=== PATIENT | female | born 1965 | race Caucasian/White ===

== ENCOUNTER 2017-05-15 13:08 | Emergency (ER) | payer SELFPAY ==
[2017-05-15] MEDS ORDERED: Iopamidol 370 76% 50 ML VIAL FS ONE (13:46)
[2017-05-15] MEDS ORDERED: ISOVUE-370 76%-LOCM 1 ML ONE (13:46)
[2017-05-15 14:04] LABS: #Basophils 0.1 thou/uL (0.0-0.2); #Eosinphils 0.1 thou/uL (0.0-0.7); #Lymphocytes 3.7 thou/uL (1.20-3.40); #Monocytes 0.6 thou/uL (0.11-0.59); #Neutrophils 3.5 thou/uL (1.40-6.50); %Basophils 1.4 % (0.0-1.0); %Eosinophils 1.8 % (0.0-10.0); %Lymphocytes 46.3 % (21.0-51.0); %Monocytes 7.1 % (0.0-10.0); Hematocrit 42.1 % (36.0-47.0); Mean Platelet Volume 7.1 fL (7.4-10.4); Red Blood Cell (RBC) Count 4.15 mill/uL (4.20-5.40)
[2017-05-15 14:14] LABS: ALT (SGPT) 38 U/L (8-55); AST (SGOT) 35 U/L (5-34); Alkaline Phosphatase 73 U/L (40-150); Anion Gap 11 mmol/L (10-20); BUN (Urea Nitrogen) 9 mg/dL (9.8-20.1); Bilirubin, Total 0.5 mg/dL (0.2-1.2); Calc. Creatinine Clearance 0 mL/min (70-130); Calcium 9.5 mg/dL (7.8-10.44); Carbon Dioxide 26 mmol/L (22-29); Chloride 106 mmol/L (98-107); Estimated GFR-MDRD 85; Globulin 3.6 g/dL (2.4-3.5); Protein, Total 7.7 g/dL (6.0-8.3)
[2017-05-15] MEDS ORDERED: Ondansetron HCl/PF 4 MG/2 ML Vial ONE (14:19)
[2017-05-15 14:21] LABS: Bilirubin Negative (Negative); Blood, Urine Negative (Negative); Glucose, Urine (Dipstick) Negative (Negative); Ketone, Urine Negative (Negative); Nitrite Negative (Negative); Protein, Urine (Dipstick) Negative (Neg-Trace); Urobilinogen 0.2 mg/dL (0.2-1.0)
--- NOTE | 2017-05-15 14:51 | RAD ---
SUPINE ABDOMEN: History: 51-year-old female with history of abdominal pain and cramping for two weeks. FINDINGS: Supine view abdomen demonstrates surgical clips seen in the gallbladder fossa. A large amount of stool is seen in the colon. No evidence of bowel obstruction or ileus seen. No dilated loops of bowel seen. IMPRESSION: Large amount of stool in the colon compatible with constipation. Otherwise, unremarkable AP abdomen. POS: [facility]
[2017-05-15] MEDS ORDERED: Morphine 4 MG/ML VIAL ONE (15:07)
--- NOTE | 2017-05-15 15:24 | RAD ---
PORTABLE AP CHEST: Date: 05-15-17 History: Abdominal pain and cramping that started two weeks ago. Comparison: 09-07-15 FINDINGS: Central venous catheter and nasogastric tubes have been removed. The cardiac silhouette and pulmonary vasculature are within normal limits. The lungs are clear. There is stable elevation of the right he midiaphragm. No other interval change. IMPRESSION: No acute cardiopulmonary process. POS: [facility]
--- NOTE | 2017-05-15 16:12 | CT ---
ABDOMEN AND PELVIC CT SCAN WITH IV CONTRAST: Date: 05/15/17 HISTORY: 51-year-old female with abdominal pain, constipation, and history of multiple surgeries, including ch olecystectomy and hysterectomy and prior ileostomy. FINDINGS: The lung bases are clear. Fatty changes in the liver. Status post cholecystectomy with some dilatatio n of the common bile duct, but no significant intrahepatic ductal dilatation. Pancreas, spleen, and a drenal glands are unremarkable. No renal calculi or evidence for acute obstruction. Urinary bladde r is mildly distended. No CT evidence for acute appendicitis. No evidence for large or small bowel ob struction. Minimal fat stranding and some scarring in the right lateral mid anterior abdominal wall. No abscess, adenopathy, or abnormal fluid collection within the abdomen or pelvis. IMPRESSION: Status post hysterectomy and cholecystectomy. Fatty changes in the liver. No renal calculus or acute obstruction, or other acute process. POS: [facility]
== END 2017-05-15 16:39 | disposition home or self-care (01) ==
LOC: ERS 13:08
DX: R10.32 Left lower quadrant pain (principal); R10.31 Right lower quadrant pain; R21 Rash and other nonspecific skin eruption; I10 Essential (primary) hypertension; F41.9 Anxiety disorder, unspecified; F17.210 Nicotine dependence, cigarettes, uncomplicated
CPT/HCPCS: 71010; 74000; 74177; 80053; 81003; 82274; 85025; 96374; 96375; 99406; J2270; J2405

== ENCOUNTER 2017-05-29 14:05 | Emergency (ER) | payer SELFPAY | END 2017-05-29 16:17 | disposition home or self-care (01) | LOC: ERS 14:05 | DX: L01.00 Impetigo, unspecified (principal); I10 Essential (primary) hypertension; F41.9 Anxiety disorder, unspecified; F17.210 Nicotine dependence, cigarettes, uncomplicated | CPT/HCPCS: 87015; 87045; 87046; 87328; 87329; 87449; 87899; 99406 ==

== ENCOUNTER 2017-08-31 11:35 | Emergency (ER) | payer SELFPAY | END 2017-08-31 14:05 | disposition home or self-care (01) | LOC: ERS 11:35 | DX: L73.9 Follicular disorder, unspecified (principal); I10 Essential (primary) hypertension; F41.9 Anxiety disorder, unspecified; F17.210 Nicotine dependence, cigarettes, uncomplicated | CPT/HCPCS: 99283 ==

== ENCOUNTER 2017-10-30 08:53 | Emergency (ER) | payer SELFPAY ==
[2017-10-30] MEDS ORDERED: Acetaminophen 500 MG TAB ONE (09:44)
[2017-10-30 09:52] LABS: Mean Corpuscular HGB CONC 33.6 g/dL (32.0-36.0); Mean Corpuscular Hemoglobin 34.1 pg (27.0-31.0); Mean Platelet Volume 7.3 fL (7.4-10.4); Platelet Count 195 thou/uL (130-400); White Blood Cell (WBC) Count 6.1 thou/uL (4.8-10.8)
[2017-10-30 10:10] LABS: ALT (SGPT) 17 U/L (8-55); AST (SGOT) 22 U/L (5-34); Albumin 3.8 g/dL (3.5-5.0); Alkaline Phosphatase 69 U/L (40-150); Anion Gap 11 mmol/L (10-20); BUN (Urea Nitrogen) 5 mg/dL (9.8-20.1); Bilirubin, Total 0.3 mg/dL (0.2-1.2); Calc. Creatinine Clearance 0 mL/min (70-130); Calcium 9.2 mg/dL (7.8-10.44); Carbon Dioxide 23 mmol/L (22-29); Chloride 111 mmol/L (98-107); Estimated GFR-MDRD Greater than 90; Globulin 2.9 g/dL (2.4-3.5); Glucose 86 mg/dL (70-105); Potassium 3.2 mmol/L (3.5-5.1); Protein, Total 6.7 g/dL (6.0-8.3); Sodium 142 mmol/L (136-145)
[2017-10-30 10:22] LABS: Lymphocytes 55 % (21-51); MDiff Complete? YES; Macrocytosis SLIGHT = 6-15 cells (100X) (0-5/hpf); Monocytes 2 % (0-10); Neutrophil 43 % (42-75); PLT Morphology Comment Appears Adequate
== END 2017-10-30 11:32 | disposition home or self-care (01) ==
LOC: ERS 08:53
DX: L98.9 Disorder of the skin and subcutaneous tissue, unspecified (principal); R19.5 Other fecal abnormalities; I10 Essential (primary) hypertension; F41.9 Anxiety disorder, unspecified; F17.210 Nicotine dependence, cigarettes, uncomplicated; B19.20 Unspecified viral hepatitis C without hepatic coma
CPT/HCPCS: 36415; 80053; 85025; 99283

== ENCOUNTER 2021-03-31 12:51 | Emergency (ER) | payer SELFPAY ==
[2021-03-31] MEDS ORDERED: Ketorolac Tromethamine 30 MG/ML VIAL ONE (14:29)
[2021-03-31 14:38] LABS: #Basophils 0.1 thou/uL (0.0-0.2); #Eosinphils 0.3 thou/uL (0.0-0.7); #Lymphocytes 2.6 thou/uL (1.20-3.40); #Monocytes 0.5 thou/uL (0.11-0.59); #Neutrophils 2.2 thou/uL (1.40-6.50); %Basophils 1.7 % (0.0-1.0); %Eosinophils 5.5 % (0.0-10.0); %Lymphocytes 44.8 % (21.0-51.0); %Monocytes 9.3 % (0.0-10.0); %Neutrophils 38.6 % (42.0-75.0); Hemoglobin 11.3 g/dL (12.0-16.0); Mean Corpuscular HGB CONC 33.8 g/dL (32.0-36.0); Mean Corpuscular Hemoglobin 35.3 pg (27.0-31.0); Mean Platelet Volume 7.8 fL (7.4-10.4); Platelet Count 115 thou/uL (130-400); RBC Distribution Width 12.5 % (11.5-14.5); White Blood Cell (WBC) Count 5.7 thou/uL (4.8-10.8)
[2021-03-31 14:53] LABS: MDiff Complete? YES; Macrocytosis SLIGHT = 6-15 cells (100X) (0-5/hpf); Platelet Morphology Comment Appears Decreased; Polychromasia SLIGHT = 2-3 cells (100X) (0-2/hpf)
[2021-03-31 14:59] LABS: ALT (SGPT) 83 U/L (8-55); AST (SGOT) 118 U/L (5-34); Albumin 2.6 g/dL (3.5-5.0); Alkaline Phosphatase 98 U/L (40-110); Anion Gap 8 mmol/L (10-20); BUN (Urea Nitrogen) 6 mg/dL (9.8-20.1); Bilirubin, Total 1.1 mg/dL (0.2-1.2); Calc. Creatinine Clearance 0 mL/min (70-130); Calcium 8.2 mg/dL (7.8-10.44); Carbon Dioxide 22 mmol/L (22-29); Chloride 113 mmol/L (98-107); Globulin 3.4 g/dL (2.4-3.5); Glucose 84 mg/dL (70-105); Magnesium 1.7 mg/dL (1.6-2.6); Potassium 3.3 mmol/L (3.5-5.1); Sodium 140 mmol/L (136-145)
[2021-03-31] MEDS ORDERED: Potassium Chloride 20 MEQ TAB ONE (15:28)
[2021-03-31 19:28] LABS: SARS-CoV-2 PCR by NAA Not Detected (NotDetected)
== END 2021-03-31 16:20 | disposition home or self-care (01) ==
LOC: ERS 12:51
DX: M79.10 Myalgia, unspecified site (principal); R60.0 Localized edema; E87.6 Hypokalemia; F17.210 Nicotine dependence, cigarettes, uncomplicated; I10 Essential (primary) hypertension; Z20.822 Contact with and (suspected) exposure to COVID-19
CPT/HCPCS: 36415; 80053; 83735; 85025; 93005; 96374; J1885; U0003; U0005

== ENCOUNTER 2021-08-09 12:33 | Emergency (ER) | payer SELFPAY ==
[~2021-08-09 12:33] MED LIST: Iopamidol 370 76% 50 ML VIAL FS ONE
[2021-08-09] MEDS ORDERED: Morphine 4 MG/ML VIAL ONE (13:51)
[2021-08-09] MEDS ORDERED: Ondansetron PF 4 MG/2 ML Vial ONE (13:52)
[2021-08-09 13:55] LABS: #Eosinphils 0.2 thou/uL (0.0-0.7); #Lymphocytes 2.5 thou/uL (1.20-3.40); #Monocytes 0.5 thou/uL (0.11-0.59); #Neutrophils 2.1 thou/uL (1.40-6.50); %Basophils 0.7 % (0.0-1.0); %Eosinophils 4.2 % (0.0-10.0); %Lymphocytes 47.2 % (21.0-51.0); %Monocytes 8.9 % (0.0-10.0); %Neutrophils 39.1 % (42.0-75.0); Hemoglobin 11.1 g/dL (12.0-16.0); Mean Corpuscular HGB CONC 32.1 g/dL (32.0-36.0); Mean Corpuscular Hemoglobin 33.5 pg (27.0-31.0); Mean Platelet Volume 7.4 fL (7.4-10.4); Platelet Count 92 thou/uL (130-400); RBC Distribution Width 13.4 % (11.5-14.5); Red Blood Cell (RBC) Count 3.32 mill/uL (4.20-5.40); White Blood Cell (WBC) Count 5.4 thou/uL (4.8-10.8)
[2021-08-09 14:03] LABS: Bilirubin 1+ (Negative); Blood, Urine Negative (Negative); Clarity Turbid (Clear); Glucose, Urine (Dipstick) Normal (Negative); Ketone, Urine Negative (Negative); Leukocyte 250 Leu/uL (Negative); Nitrite Negative (Negative); Protein, Urine (Dipstick) 50 mg/dL (Neg-Trace); Specific Gravity, Urine 1.037 (1.002-1.036); pH, Urine 5.5 (5.0-9.0)
[2021-08-09 14:12] LABS: INR-International Normal Ratio 1.5; PTT 39.8 sec (22.9-36.1); Prothrombin Time 18.5 sec (12.0-14.7)
[2021-08-09 14:14] LABS: Bacteria/HPF 2+ HPF (None Seen); Transitional Epithelial 0-3 HPF (None Seen)
[2021-08-09 14:15] LABS: Calcium Oxalate Crystals 2+ HPF (None Seen)
[2021-08-09 14:15] LABS: Albumin 2.8 g/dL (3.5-5.0); Alkaline Phosphatase 119 U/L (40-110); Anion Gap 11 mmol/L (10-20); BUN (Urea Nitrogen) 9 mg/dL (9.8-20.1); Bilirubin, Total 2.4 mg/dL (0.2-1.2); Calc. Creatinine Clearance 0 mL/min (70-130); Calcium 8.2 mg/dL (7.8-10.44); Carbon Dioxide 20 mmol/L (22-29); Chloride 113 mmol/L (98-107); Glucose 88 mg/dL (70-105); Potassium 3.4 mmol/L (3.5-5.1); Protein, Total 5.8 g/dL (6.0-8.3); Sodium 141 mmol/L (136-145)
[2021-08-09 14:16] LABS: ALT (SGPT) 113 U/L (8-55); AST (SGOT) 150 U/L (5-34); Lipase 44 U/L (8-78); Magnesium 1.9 mg/dL (1.6-2.6)
[2021-08-09] MEDS ORDERED: Furosemide 40 MG/4 ML VIAL ONE (14:42)
[2021-08-09] MEDS ORDERED: Potassium Chloride 20 MEQ TAB ONE (15:07)
== END 2021-08-09 15:44 | disposition home or self-care (01) ==
LOC: ERS 12:33
DX: K74.60 Unspecified cirrhosis of liver (principal); R18.8 Other ascites; F17.210 Nicotine dependence, cigarettes, uncomplicated
CPT/HCPCS: 36415; 74177; 76705; 80053; 81003; 81015; 83690; 83735; 83880; 84443; 85025; 85610; 85730; 93005; 96374; 96375; J1940; J2270; J2405; Q9967

== ENCOUNTER 2021-08-21 13:42 | Inpatient (IN) | payer SELFPAY ==
[~2021-08-21 13:42] MED LIST changes: -Iopamidol 370 76% 50 ML VIAL FS ONE; +Iopamidol-370 76% 500 ML 1 ML ONE
[2021-08-21] MEDS ORDERED: Fentanyl 100 MCG/2 ML VIAL ONE ×2 (14:12→15:29)
[2021-08-21 14:29] LABS: #Basophils 0.1 thou/uL (0.0-0.2); #Eosinphils 0.4 thou/uL (0.0-0.7); #Lymphocytes 2.5 thou/uL (1.20-3.40); #Monocytes 0.6 thou/uL (0.11-0.59); #Neutrophils 2.1 thou/uL (1.40-6.50); %Basophils 1.7 % (0.0-1.0); %Eosinophils 6.6 % (0.0-10.0); %Lymphocytes 44.2 % (21.0-51.0); %Monocytes 10.8 % (0.0-10.0); %Neutrophils 36.7 % (42.0-75.0); Hemoglobin 11.6 g/dL (12.0-16.0); Mean Corpuscular Hemoglobin 35.1 pg (27.0-31.0); Mean Platelet Volume 8.1 fL (7.4-10.4); Platelet Count 101 thou/uL (130-400); RBC Distribution Width 13.3 % (11.5-14.5); Red Blood Cell (RBC) Count 3.32 mill/uL (4.20-5.40); White Blood Cell (WBC) Count 5.6 thou/uL (4.8-10.8)
[2021-08-21 14:52] LABS: ALT (SGPT) 109 U/L (8-55); AST (SGOT) 163 U/L (5-34); Alkaline Phosphatase 147 U/L (40-110); Anion Gap 11 mmol/L (10-20); BUN (Urea Nitrogen) 8 mg/dL (9.8-20.1); Bilirubin, Total 2.3 mg/dL (0.2-1.2); Calc. Creatinine Clearance 0 mL/min (70-130); Calcium 8.4 mg/dL (7.8-10.44); Carbon Dioxide 24 mmol/L (22-29); Chloride 109 mmol/L (98-107); Globulin 2.9 g/dL (2.4-3.5); Glucose 93 mg/dL (70-105); Lipase 88 U/L (8-78); Potassium 3.5 mmol/L (3.5-5.1); Protein, Total 5.9 g/dL (6.0-8.3); Sodium 140 mmol/L (136-145)
[2021-08-21 15:07] LABS: Bilirubin Negative (Negative); Blood, Urine Negative (Negative); Clarity Clear (Clear); Glucose, Urine (Dipstick) Normal (Negative); Ketone, Urine Negative (Negative); Leukocyte Negative Leu/uL (Negative); Nitrite Negative (Negative); Protein, Urine (Dipstick) 10 mg/dL (Neg-Trace); Specific Gravity, Urine 1.026 (1.002-1.036); pH, Urine 5.5 (5.0-9.0)
[2021-08-21] MEDS ORDERED: Ondansetron ODT 4 MG TAB PO PRN (17:48)
[2021-08-21] MEDS ORDERED: Ondansetron PF 4 MG/2 ML Vial IVP PRN (17:48)
[2021-08-21] MEDS ORDERED: Piperacillin/Tazobactam 3.375 GM in Sodium Chloride 0.9% 100 ML IVPB SCH ×2 (17:48→19:30)
[2021-08-21 18:05] LABS: INR-International Normal Ratio 1.4; Prothrombin Time 17.2 sec (12.0-14.7)
[2021-08-21 18:15] VITALS: BMI 30.7
[2021-08-21] MEDS: Lactated Ringer's 1,000 ML IV SCH (18:23)
[2021-08-21] MEDS ORDERED: FLU VACC QS2021-22(6MOS UP)/PF 60 MCG/0.5 ML SYRINGE IM ONE (18:30)
[2021-08-21] MEDS: Morphine 4 MG/ML VIAL SLOW IVP PRN (19:49)
[2021-08-21] MEDS: Pantoprazole 40 MG VIAL IVP SCH (19:54)
[2021-08-21] MEDS ORDERED: GoLYTELY 4,000 ml Bottle PO SCH (22:00)
[2021-08-21] MEDS: Piperacillin/Tazobactam 3.375 GM in Sodium Chloride 0.9% 100 ML IVPB SCH (23:32)
[2021-08-22] MEDS ORDERED: Morphine 4 MG/ML VIAL SLOW IVP SCH (00:45)
[2021-08-22 06:12] LABS: Hemoglobin 10.8 g/dL (12.0-16.0); Mean Corpuscular HGB CONC 32.1 g/dL (32.0-36.0); Mean Corpuscular Hemoglobin 33.6 pg (27.0-31.0); Mean Platelet Volume 7.9 fL (7.4-10.4); Platelet Count 90 thou/uL (130-400); RBC Distribution Width 13.3 % (11.5-14.5); Red Blood Cell (RBC) Count 3.21 mill/uL (4.20-5.40); White Blood Cell (WBC) Count 4.2 thou/uL (4.8-10.8)
[2021-08-22] MEDS: Morphine 4 MG/ML VIAL SLOW IVP PRN ×3 (06:28→23:30)
[2021-08-22 06:34] LABS: ALT (SGPT) 101 U/L (8-55); AST (SGOT) 158 U/L (5-34); Albumin 2.7 g/dL (3.5-5.0); Alkaline Phosphatase 120 U/L (40-110); Anion Gap 11 mmol/L (10-20); BUN (Urea Nitrogen) 7 mg/dL (9.8-20.1); Bilirubin, Direct 1.5 mg/dL (0.1-0.3); Bilirubin, Total 2.8 mg/dL (0.2-1.2); Calc. Creatinine Clearance 123 mL/min (70-130); Calcium 8.2 mg/dL (7.8-10.44); Carbon Dioxide 23 mmol/L (22-29); Chloride 110 mmol/L (98-107); Glucose 73 mg/dL (70-105); Potassium 3.7 mmol/L (3.5-5.1); Protein, Total 5.5 g/dL (6.0-8.3); Sodium 140 mmol/L (136-145)
[2021-08-22 06:35] LABS: Band 2 % (5-11); Eosinophils 6 % (0-10); Lymphocytes 54 % (21-51); MDiff Complete? YES; Macrocytosis SLIGHT = 6-15 cells (100X) (0-5/hpf); Monocytes 4 % (0-10); Neutrophil 34 % (42-75); Platelet Morphology Comment Appears Decreased
[2021-08-22] MEDS: Piperacillin/Tazobactam 3.375 GM in Sodium Chloride 0.9% 100 ML IVPB SCH ×3 (07:57→23:30)
[2021-08-22] MEDS: Pantoprazole 40 MG VIAL IVP SCH ×2 (07:57→20:32)
[2021-08-22] MEDS: Lactated Ringer's 1,000 ML IV SCH ×2 (07:58→23:30)
[2021-08-22 08:26] LABS: SARS-CoV-2 NAA Rapid Test Not Detected (NotDetected)
[2021-08-22] MEDS ORDERED: PROPOFOL 200 MG/20 ML VIAL ONE (09:17)
[2021-08-22] MEDS: Acetaminophen 325 MG TAB PO PRN ×2 (10:15→20:37)
[2021-08-22] MEDS ORDERED: ALPRAZolam 0.5 MG TAB PO PRN (15:00)
[2021-08-22] MEDS ORDERED: hydrALAZINE 20 MG/ML VIAL SLOW IVP PRN (15:01)
[2021-08-22] MEDS ORDERED: GoLYTELY 4,000 ml Bottle PO SCH ×2 (17:00→18:00)
[2021-08-23 05:52] LABS: %Neutrophils 31.8 % (42.0-75.0); Hemoglobin 10.5 g/dL (12.0-16.0); Mean Corpuscular HGB CONC 33.2 g/dL (32.0-36.0); Mean Corpuscular Hemoglobin 34.4 pg (27.0-31.0); Mean Platelet Volume 7.9 fL (7.4-10.4); Platelet Count 83 thou/uL (130-400); RBC Distribution Width 13.2 % (11.5-14.5); Red Blood Cell (RBC) Count 3.04 mill/uL (4.20-5.40); White Blood Cell (WBC) Count 3.4 thou/uL (4.8-10.8)
[2021-08-23 05:53] LABS: #Basophils 0.1 thou/uL (0.0-0.2); #Eosinphils 0.2 thou/uL (0.0-0.7); #Lymphocytes 1.7 thou/uL (1.20-3.40); #Monocytes 0.4 thou/uL (0.11-0.59); #Neutrophils 1.1 thou/uL (1.40-6.50); %Basophils 1.5 % (0.0-1.0); %Eosinophils 6.8 % (0.0-10.0); %Lymphocytes 48.3 % (21.0-51.0); %Monocytes 11.6 % (0.0-10.0)
[2021-08-23 06:19] LABS: Anion Gap 12 mmol/L (10-20); BUN (Urea Nitrogen) 5 mg/dL (9.8-20.1); Calc. Creatinine Clearance 119 mL/min (70-130); Carbon Dioxide 21 mmol/L (22-29); Chloride 111 mmol/L (98-107); Potassium 3.5 mmol/L (3.5-5.1); Sodium 140 mmol/L (136-145)
[2021-08-23 06:20] LABS: Calcium 7.9 mg/dL (7.8-10.44); Cardiac Risk 3.8 (Less than 4.5); Cholesterol 129 mg/dl (< 200 Desired); Glucose 72 mg/dL (70-105); HDL Cholesterol 34 mg/dL (>60 Neg Risk); LDL Cholesterol, Calculated 85 mg/dL; Triglycerides 52 mg/dL (Less than 150)
[2021-08-23] MEDS: Piperacillin/Tazobactam 3.375 GM in Sodium Chloride 0.9% 100 ML IVPB SCH (08:16)
[2021-08-23] MEDS: Spironolactone 25 MG TAB PO SCH (08:17)
[2021-08-23] MEDS: Pantoprazole 40 MG VIAL IVP SCH (08:17)
[2021-08-23] MEDS: Morphine 4 MG/ML VIAL SLOW IVP PRN ×2 (08:22→16:46)
[2021-08-23] MEDS ORDERED: PHENYLEPHRINE-NS 100 MCG/ML 10 ML SYRINGE ONE (10:35)
[2021-08-23] MEDS ORDERED: PROPOFOL 200 MG/20 ML VIAL ONE (10:35)
[2021-08-23] MEDS: Lactated Ringer's 1,000 ML IV SCH (12:52)
[2021-08-23] MEDS: Acetaminophen 325 MG TAB PO PRN (14:34)
[2021-08-23] MEDS: Doxycycline 100 MG CAP PO SCH (20:10)
[2021-08-24] MEDS: Lactated Ringer's 1,000 ML IV SCH ×2 (03:46→08:28)
[2021-08-24] MEDS: Morphine 4 MG/ML VIAL SLOW IVP PRN (04:24)
[2021-08-24] MEDS: Doxycycline 100 MG CAP PO SCH (08:22)
[2021-08-24] MEDS: Spironolactone 25 MG TAB PO SCH (08:22)
[2021-08-24] MEDS: Acetaminophen 325 MG TAB PO PRN ×2 (08:25→13:13)
[2021-08-24 12:28] VITALS: BP 118/69
[2021-08-24 14:29] VITALS: TEMP 98.9
== END 2021-08-24 14:45 | disposition home or self-care (01) | DRG 602 ==
LOC: ERS 13:42 → T4-A 17:36 → OBSVTOIN 08-22 10:22
PROVIDERS: ADMIT Internal Medicine; ATTEND Internal Medicine
PROC: 0DB68ZX Excision of Stomach, Via Natural or Artificial Opening Endoscopic, Diagnostic (ICD-10-PCS; principal; 2021-08-22)
PROC: 0DBN8ZZ Excision of Sigmoid Colon, Via Natural or Artificial Opening Endoscopic (ICD-10-PCS; 2021-08-23)
PROC: 0W3P8ZZ Control Bleeding in Gastrointestinal Tract, Via Natural or Artificial Opening Endoscopic (ICD-10-PCS; 2021-08-23)
DX: L03.311 Cellulitis of abdominal wall (principal); K55.21 Angiodysplasia of colon with hemorrhage; K76.6 Portal hypertension; D62 Acute posthemorrhagic anemia; D68.9 Coagulation defect, unspecified; Z20.822 Contact with and (suspected) exposure to COVID-19; I10 Essential (primary) hypertension; F17.210 Nicotine dependence, cigarettes, uncomplicated; R31.9 Hematuria, unspecified; K29.70 Gastritis, unspecified, without bleeding; B19.20 Unspecified viral hepatitis C without hepatic coma; D12.5 Benign neoplasm of sigmoid colon; K74.60 Unspecified cirrhosis of liver; K31.89 Other diseases of stomach and duodenum; D69.6 Thrombocytopenia, unspecified; Z88.1 Allergy status to other antibiotic agents; Z90.49 Acquired absence of other specified parts of digestive tract; Z90.710 Acquired absence of both cervix and uterus
CPT/HCPCS: 36415; 51701; 71045; 74177; 80048; 80053; 80061; 80076; 81003; 83605; 83690; 83880; 84484; 85025; 85610; 88305; 88312; 93005; 93306; 96374; 96375; 96376; C9113; G0378; J2270; J2405; J2543; J2704; J3010; J3490; J7120; Q0162; Q9967; U0002; U0003; U0005

== ENCOUNTER 2021-11-19 09:11 | Emergency (ER) | payer OTHER, SELFPAY ==
[2021-11-19 10:05] LABS: #Basophils 0.1 thou/uL (0.0-0.2); #Eosinphils 0.2 thou/uL (0.0-0.7); #Lymphocytes 2.7 thou/uL (1.20-3.40); #Monocytes 0.6 thou/uL (0.11-0.59); #Neutrophils 2.6 thou/uL (1.40-6.50); %Basophils 1.4 % (0.0-1.0); %Eosinophils 3.9 % (0.0-10.0); %Lymphocytes 43.7 % (21.0-51.0); %Neutrophils 42.1 % (42.0-75.0); Hemoglobin 12.8 g/dL (12.0-16.0); Mean Corpuscular HGB CONC 32.3 g/dL (32.0-36.0); Mean Platelet Volume 7.6 fL (7.4-10.4); Platelet Count 115 thou/uL (130-400); RBC Distribution Width 13.8 % (11.5-14.5); Red Blood Cell (RBC) Count 3.67 mill/uL (4.20-5.40); White Blood Cell (WBC) Count 6.2 thou/uL (4.8-10.8)
[2021-11-19 10:27] LABS: MDiff Complete? YES; Macrocytosis MODERATE=16-30 cells (100X) (0-5/hpf); Platelet Morphology Comment Appears Decreased
[2021-11-19 10:32] LABS: ALT (SGPT) 124 U/L (8-55); AST (SGOT) 203 U/L (5-34); Albumin 3.1 g/dL (3.5-5.0); Alkaline Phosphatase 151 U/L (40-110); Anion Gap 10 mmol/L (10-20); BUN (Urea Nitrogen) 7 mg/dL (9.8-20.1); Bilirubin, Total 2.3 mg/dL (0.2-1.2); Calc. Creatinine Clearance 0 mL/min (70-130); Calcium 8.6 mg/dL (7.8-10.44); Carbon Dioxide 23 mmol/L (22-29); Chloride 110 mmol/L (98-107); Globulin 3.1 g/dL (2.4-3.5); Glucose 98 mg/dL (70-105); Lipase 102 U/L (8-78); Potassium 3.6 mmol/L (3.5-5.1); Protein, Total 6.2 g/dL (6.0-8.3); Sodium 139 mmol/L (136-145)
[2021-11-19] MEDS ORDERED: Metoclopramide HCl 10 MG/2 ML VIAL ONE (10:55)
[2021-11-19] MEDS ORDERED: diphenhydrAMINE 50 MG/ML VIAL ONE (10:55)
[2021-11-19] MEDS ORDERED: Promethazine HCl 12.5 MG, Admixture Fee 1 EACH in Sodium Chloride 0.9% 50 ML IVPB SCH (12:45)
[2021-11-19] MEDS ORDERED: Iopamidol-370 76% 500 ML 1 ML ONE (16:03)
== END 2021-11-19 15:00 | disposition home or self-care (01) ==
LOC: ERS 09:11
DX: R11.2 Nausea with vomiting, unspecified (principal); R10.84 Generalized abdominal pain; I10 Essential (primary) hypertension; F17.210 Nicotine dependence, cigarettes, uncomplicated; Z79.899 Other long term (current) drug therapy
CPT/HCPCS: 36415; 74177; 80053; 82274; 83690; 84484; 85025; 93005; 96365; 96366; 96367; 96375; J1200; J2550; J2765; Q9967

== ENCOUNTER 2021-11-29 23:07 | Emergency (ER) | payer SELFPAY ==
[2021-11-30] MEDS ORDERED: Ondansetron PF 4 MG/2 ML Vial ONE ×2 (00:38→00:41)
[2021-11-30] MEDS ORDERED: Morphine 4 MG/ML VIAL ONE (00:38)
[2021-11-30 00:53] LABS: ALT (SGPT) 117 U/L (8-55); AST (SGOT) 178 U/L (5-34); Alkaline Phosphatase 127 U/L (40-110); Anion Gap 9 mmol/L (10-20); BUN (Urea Nitrogen) 6 mg/dL (9.8-20.1); Bilirubin, Total 2.7 mg/dL (0.2-1.2); Calc. Creatinine Clearance 0 mL/min (70-130); Calcium 8.7 mg/dL (7.8-10.44); Carbon Dioxide 24 mmol/L (22-29); Chloride 109 mmol/L (98-107); Globulin 2.9 g/dL (2.4-3.5); Glucose 85 mg/dL (70-105); Lipase 63 U/L (8-78); Potassium 3.7 mmol/L (3.5-5.1); Protein, Total 5.9 g/dL (6.0-8.3); Sodium 138 mmol/L (136-145)
[2021-11-30 01:04] LABS: #Basophils 0.1 thou/uL (0.0-0.2); #Eosinphils 0.2 thou/uL (0.0-0.7); #Lymphocytes 2.1 thou/uL (1.20-3.40); #Monocytes 0.5 thou/uL (0.11-0.59); #Neutrophils 1.6 thou/uL (1.40-6.50); %Basophils 1.3 % (0.0-1.0); %Eosinophils 4.7 % (0.0-10.0); %Lymphocytes 46.8 % (21.0-51.0); %Monocytes 11.2 % (0.0-10.0); %Neutrophils 36.1 % (42.0-75.0); Hemoglobin 11.3 g/dL (12.0-16.0); Mean Corpuscular HGB CONC 33.4 g/dL (32.0-36.0); Mean Corpuscular Hemoglobin 35.9 pg (27.0-31.0); Mean Platelet Volume 8.1 fL (7.4-10.4); Platelet Count 85 thou/uL (130-400); Platelet Morphology Comment Appears Decreased; Red Blood Cell (RBC) Count 3.16 mill/uL (4.20-5.40); White Blood Cell (WBC) Count 4.4 thou/uL (4.8-10.8)
[2021-11-30] MEDS ORDERED: Furosemide 40 MG/4 ML VIAL ONE (01:24)
[2021-11-30 03:48] LABS: Bilirubin Negative (Negative); Blood, Urine Negative (Negative); Clarity Clear (Clear); Glucose, Urine (Dipstick) Normal (Negative); Ketone, Urine Negative (Negative); Leukocyte Negative Leu/uL (Negative); Nitrite Negative (Negative); Protein, Urine (Dipstick) Negative (Neg-Trace); Specific Gravity, Urine 1.007 (1.002-1.036); Urobilinogen Normal mg/dL (Less than 2)
== END 2021-11-30 02:16 | disposition home or self-care (01) ==
LOC: ERS 23:07
DX: K74.60 Unspecified cirrhosis of liver (principal); I10 Essential (primary) hypertension; F17.210 Nicotine dependence, cigarettes, uncomplicated; Z79.899 Other long term (current) drug therapy
CPT/HCPCS: 36415; 80053; 81003; 83690; 83880; 85025; 96374; 96375; J1940; J2270; J2405

== ENCOUNTER 2021-12-16 15:55 | Emergency (ER) | payer SELFPAY ==
[2021-12-17] MEDS ORDERED: Ondansetron PF 4 MG/2 ML Vial ONE (14:27)
[2021-12-17] MEDS ORDERED: Morphine 4 MG/ML VIAL ONE (14:27)
== END 2021-12-16 16:09 | disposition left against medical advice (07) ==
LOC: ERS 15:55
DX: Z53.21 Procedure and treatment not carried out due to patient leaving prior to being seen by health care provider (principal)

== ENCOUNTER 2021-12-17 11:01 | Inpatient (IN) | payer SELFPAY ==
[2021-12-17 12:41] LABS: #Basophils 0.1 thou/uL (0.0-0.2); #Eosinphils 0.2 thou/uL (0.0-0.7); #Lymphocytes 1.6 thou/uL (1.20-3.40); #Monocytes 0.4 thou/uL (0.11-0.59); #Neutrophils 1.6 thou/uL (1.40-6.50); %Basophils 1.9 % (0.0-1.0); %Eosinophils 4.9 % (0.0-10.0); %Lymphocytes 41.7 % (21.0-51.0); %Monocytes 10.8 % (0.0-10.0); %Neutrophils 40.7 % (42.0-75.0); Hemoglobin 11.9 g/dL (12.0-16.0); Mean Corpuscular Hemoglobin 34.7 pg (27.0-31.0); Mean Platelet Volume 8.3 fL (7.4-10.4); Platelet Count 86 thou/uL (130-400); RBC Distribution Width 12.8 % (11.5-14.5); Red Blood Cell (RBC) Count 3.42 mill/uL (4.20-5.40); White Blood Cell (WBC) Count 3.8 thou/uL (4.8-10.8)
[2021-12-17 12:55] LABS: INR-International Normal Ratio 1.6; PTT 39.6 sec (22.9-36.1); Prothrombin Time 19.3 sec (12.0-14.7)
[2021-12-17 13:07] LABS: ALT (SGPT) 117 U/L (8-55); AST (SGOT) 179 U/L (5-34); Albumin 2.8 g/dL (3.5-5.0); Alkaline Phosphatase 132 U/L (40-110); Anion Gap 13 mmol/L (10-20); BUN (Urea Nitrogen) 8 mg/dL (9.8-20.1); Bilirubin, Total 2.3 mg/dL (0.2-1.2); Calc. Creatinine Clearance 0 mL/min (70-130); Calcium 8.3 mg/dL (7.8-10.44); Carbon Dioxide 21 mmol/L (22-29); Chloride 110 mmol/L (98-107); Globulin 2.8 g/dL (2.4-3.5); Glucose 202 mg/dL (70-105); Lipase 62 U/L (8-78); Potassium 3.8 mmol/L (3.5-5.1); Protein, Total 5.6 g/dL (6.0-8.3); Sodium 140 mmol/L (136-145)
[2021-12-17 14:32] LABS: Bilirubin Negative (Negative); Blood, Urine Negative (Negative); Clarity Clear (Clear); Glucose, Urine (Dipstick) Normal (Negative); Ketone, Urine Negative (Negative); Leukocyte Negative Leu/uL (Negative); Nitrite Negative (Negative); Protein, Urine (Dipstick) Negative (Neg-Trace); Specific Gravity, Urine 1.021 (1.002-1.036); Urobilinogen 6 mg/dL (Less than 2)
[2021-12-17] MEDS ORDERED: Ondansetron PF 4 MG/2 ML Vial IVP PRN (15:57)
[2021-12-17] MEDS ORDERED: Ondansetron ODT 4 MG TAB PO PRN (15:57)
[2021-12-17 17:34] VITALS: BMI 27.4
[2021-12-17] MEDS ORDERED: Polyethylene Glycol 3350 17 GM Packet PO PRN (17:53)
[2021-12-17] MEDS ORDERED: Senokot S 8.6-50 MG TAB PO PRN ×2 (17:53→18:18)
[2021-12-17] MEDS ORDERED: Acetaminophen 325 MG TAB PO SCH (18:00)
[2021-12-17] MEDS: HYDROcodone/Acetaminophen 7.5/325 mg Tablet PO PRN (18:09)
[2021-12-17] MEDS: Acetaminophen 325 MG TAB PO SCH ×2 (18:11→23:22)
[2021-12-17 19:34] LABS: Hemoglobin A1c 4.8 % (4.0-6.0)
[2021-12-17] MEDS: Senokot S 8.6-50 MG TAB PO SCH (19:51)
[2021-12-18] MEDS: HYDROcodone/Acetaminophen 7.5/325 mg Tablet PO PRN ×4 (00:48→23:10)
[2021-12-18] MEDS: ALPRAZolam 0.25 MG TAB PO PRN ×2 (04:40→23:10)
[2021-12-18] MEDS: Acetaminophen 325 MG TAB PO SCH ×4 (04:40→23:07)
[2021-12-18 07:07] LABS: #Basophils 0.1 thou/uL (0.0-0.2); #Eosinphils 0.2 thou/uL (0.0-0.7); #Lymphocytes 2.1 thou/uL (1.20-3.40); #Monocytes 0.5 thou/uL (0.11-0.59); #Neutrophils 2.6 thou/uL (1.40-6.50); %Basophils 1.1 % (0.0-1.0); %Eosinophils 4.4 % (0.0-10.0); %Monocytes 8.5 % (0.0-10.0); %Neutrophils 47.9 % (42.0-75.0); Hemoglobin 10.9 g/dL (12.0-16.0); Mean Corpuscular HGB CONC 32.6 g/dL (32.0-36.0); Mean Corpuscular Hemoglobin 35.1 pg (27.0-31.0); Mean Platelet Volume 8.3 fL (7.4-10.4); Platelet Count 77 thou/uL (130-400); RBC Distribution Width 12.7 % (11.5-14.5); Red Blood Cell (RBC) Count 3.09 mill/uL (4.20-5.40); White Blood Cell (WBC) Count 5.4 thou/uL (4.8-10.8)
[2021-12-18 07:12] LABS: INR-International Normal Ratio 1.6; PTT 42.8 sec (22.9-36.1); Prothrombin Time 19.2 sec (12.0-14.7)
[2021-12-18 07:30] LABS: ALT (SGPT) 115 U/L (8-55); AST (SGOT) 188 U/L (5-34); Albumin 2.5 g/dL (3.5-5.0); Alkaline Phosphatase 119 U/L (40-110); Anion Gap 10 mmol/L (10-20); BUN (Urea Nitrogen) 8 mg/dL (9.8-20.1); Bilirubin, Total 2.3 mg/dL (0.2-1.2); CRP (Inflammatory) Less than 0.50 mg/dL (= or < 0.5); Calc. Creatinine Clearance 103 mL/min (70-130); Calcium 8.5 mg/dL (7.8-10.44); Carbon Dioxide 22 mmol/L (22-29); Cardiac Risk 3.6 (Less than 4.5); Chloride 109 mmol/L (98-107); Cholesterol 123 mg/dl (< 200 Desired); Globulin 2.5 g/dL (2.4-3.5); Glucose 82 mg/dL (70-105); HDL Cholesterol 34 mg/dL (>60 Neg Risk); LDL Cholesterol, Calculated 78 mg/dL; Magnesium 1.7 mg/dL (1.6-2.6); Potassium 3.7 mmol/L (3.5-5.1); Sodium 137 mmol/L (136-145); Triglycerides 56 mg/dL (Less than 150)
[2021-12-18] MEDS: Senokot S 8.6-50 MG TAB PO SCH ×2 (08:40→18:55)
[2021-12-18] MEDS ORDERED: Iopamidol-370 76% 500 ML 1 ML ONE (13:22)
[2021-12-18] MEDS: metroNIDAZOLE 500 MG in Premix Bag 1 BAG IVPB SCH ×2 (14:41→21:12)
[2021-12-18] MEDS ORDERED: Morphine 2 MG/ML VIAL SLOW IVP SCH (19:30)
[2021-12-19] MEDS: Acetaminophen 325 MG TAB PO SCH (04:58)
[2021-12-19] MEDS: metroNIDAZOLE 500 MG in Premix Bag 1 BAG IVPB SCH (04:59)
[2021-12-19] MEDS: HYDROcodone/Acetaminophen 7.5/325 mg Tablet PO PRN (05:43)
[2021-12-19] MEDS: ALPRAZolam 0.25 MG TAB PO PRN (05:44)
[2021-12-19 06:46] LABS: #Basophils 0.1 thou/uL (0.0-0.2); #Eosinphils 0.2 thou/uL (0.0-0.7); #Monocytes 0.5 thou/uL (0.11-0.59); #Neutrophils 2.3 thou/uL (1.40-6.50); %Basophils 1.1 % (0.0-1.0); %Eosinophils 3.9 % (0.0-10.0); %Monocytes 10.5 % (0.0-10.0); %Neutrophils 45.5 % (42.0-75.0); Hemoglobin 10.9 g/dL (12.0-16.0); Mean Corpuscular HGB CONC 31.2 g/dL (32.0-36.0); Mean Corpuscular Hemoglobin 33.9 pg (27.0-31.0); Mean Platelet Volume 8.4 fL (7.4-10.4); Platelet Count 78 thou/uL (130-400); RBC Distribution Width 12.7 % (11.5-14.5); Red Blood Cell (RBC) Count 3.22 mill/uL (4.20-5.40)
[2021-12-19 07:01] LABS: ALT (SGPT) 124 U/L (8-55); AST (SGOT) 214 U/L (5-34); Albumin 2.6 g/dL (3.5-5.0); Alkaline Phosphatase 120 U/L (40-110); Anion Gap 11 mmol/L (10-20); BUN (Urea Nitrogen) 7 mg/dL (9.8-20.1); Bilirubin, Total 2.1 mg/dL (0.2-1.2); Calc. Creatinine Clearance 102 mL/min (70-130); Calcium 8.3 mg/dL (7.8-10.44); Carbon Dioxide 22 mmol/L (22-29); Chloride 109 mmol/L (98-107); Globulin 2.5 g/dL (2.4-3.5); Glucose 83 mg/dL (70-105); Magnesium 1.7 mg/dL (1.6-2.6); Protein, Total 5.1 g/dL (6.0-8.3); Sodium 138 mmol/L (136-145)
[2021-12-19] MEDS: Senokot S 8.6-50 MG TAB PO SCH (09:00)
[2021-12-19 09:13] VITALS: BP 109/68; TEMP 98.9
== END 2021-12-19 10:50 | disposition home or self-care (01) | DRG 433 ==
LOC: ERS 11:01 → T4-A 15:54 → OBSVTOIN 12-18 13:45
PROVIDERS: ADMIT Family Medicine; ATTEND Internal Medicine
DX: K74.69 Other cirrhosis of liver (principal); K76.6 Portal hypertension; K92.1 Melena; R18.8 Other ascites; R10.9 Unspecified abdominal pain; F32.A Depression, unspecified; B18.2 Chronic viral hepatitis C; F41.9 Anxiety disorder, unspecified; F15.10 Other stimulant abuse, uncomplicated; K62.3 Rectal prolapse; I10 Essential (primary) hypertension; F17.200 Nicotine dependence, unspecified, uncomplicated; Z20.822 Contact with and (suspected) exposure to COVID-19; Z71.6 Tobacco abuse counseling; Z79.899 Other long term (current) drug therapy; Z79.2 Long term (current) use of antibiotics; Z79.891 Long term (current) use of opiate analgesic; Z90.710 Acquired absence of both cervix and uterus; Z90.49 Acquired absence of other specified parts of digestive tract; Z98.890 Other specified postprocedural states; Z88.8 Allergy status to other drugs, medicaments and biological substances; Z88.1 Allergy status to other antibiotic agents
CPT/HCPCS: 36415; 74177; 76705; 80053; 80061; 81003; 83036; 83690; 83735; 84443; 85025; 85610; 85730; 86140; 86850; 86900; 86901; 96374; 96375; 96376; G0378; J0744; J2270; Q9967; U0003; U0005

== ENCOUNTER 2021-12-27 06:57 | Emergency (ER) | payer SELFPAY ==
[2021-12-27] MEDS ORDERED: Dicyclomine 20 MG/2 ML VIAL ONE (07:47)
[2021-12-27] MEDS ORDERED: ISOVUE-370 76%-LOCM 1 ML ONE (08:00)
[2021-12-27 08:08] LABS: INR-International Normal Ratio 1.5; Prothrombin Time 18.3 sec (12.0-14.7)
[2021-12-27 08:09] LABS: PTT 42.8 sec (22.9-36.1)
[2021-12-27 08:17] LABS: ALT (SGPT) 120 U/L (8-55); AST (SGOT) 189 U/L (5-34); Alkaline Phosphatase 139 U/L (40-110); Anion Gap 11 mmol/L (10-20); BUN (Urea Nitrogen) 9 mg/dL (9.8-20.1); Bilirubin, Total 2.6 mg/dL (0.2-1.2); Calc. Creatinine Clearance 0 mL/min (70-130); Calcium 8.6 mg/dL (7.8-10.44); Carbon Dioxide 22 mmol/L (22-29); Chloride 111 mmol/L (98-107); Estimated GFR 101; Globulin 2.9 g/dL (2.4-3.5); Glucose 92 mg/dL (70-105); Lipase 108 U/L (8-78); Potassium 3.9 mmol/L (3.5-5.1); Protein, Total 5.9 g/dL (6.0-8.3); Sodium 140 mmol/L (136-145)
[2021-12-27 08:30] LABS: #Basophils 0.1 thou/uL (0.0-0.2); #Eosinphils 0.3 thou/uL (0.0-0.7); #Lymphocytes 2.2 thou/uL (1.20-3.40); #Monocytes 0.5 thou/uL (0.11-0.59); #Neutrophils 2.1 thou/uL (1.40-6.50); %Basophils 1.1 % (0.0-1.0); %Eosinophils 5.4 % (0.0-10.0); %Lymphocytes 43.8 % (21.0-51.0); %Monocytes 9.1 % (0.0-10.0); %Neutrophils 40.6 % (42.0-75.0); Hemoglobin 12.5 g/dL (12.0-16.0); MDiff Complete? YES; Macrocytosis SLIGHT = 6-15 cells (100X) (0-5/hpf); Mean Corpuscular HGB CONC 33.8 g/dL (32.0-36.0); Mean Corpuscular Hemoglobin 36.1 pg (27.0-31.0); Mean Platelet Volume 7.5 fL (7.4-10.4); Platelet Count 86 thou/uL (130-400); Platelet Morphology Comment Appears Decreased; RBC Distribution Width 12.7 % (11.5-14.5); Red Blood Cell (RBC) Count 3.46 mill/uL (4.20-5.40); White Blood Cell (WBC) Count 5.1 thou/uL (4.8-10.8)
[2021-12-27 11:41] LABS: Bilirubin Negative (Negative); Blood, Urine Negative (Negative); Clarity Clear (Clear); Glucose, Urine (Dipstick) Normal (Negative); Ketone, Urine Negative (Negative); Leukocyte Negative Leu/uL (Negative); Nitrite Negative (Negative); Protein, Urine (Dipstick) Negative (Neg-Trace); Specific Gravity, Urine 1.019 (1.002-1.036); Urobilinogen Normal mg/dL (Less than 2)
== END 2021-12-27 13:38 | disposition home or self-care (01) ==
LOC: ERS 06:57
DX: R10.31 Right lower quadrant pain (principal); F17.200 Nicotine dependence, unspecified, uncomplicated
CPT/HCPCS: 36415; 74177; 76705; 80053; 81003; 83605; 83690; 83735; 85025; 85610; 85730; 94760; 96372; J0500; Q9966

== ENCOUNTER 2022-10-26 19:04 | Emergency (ER) | payer OTHER ==
[~2022-10-26 19:04] MED LIST changes: +Iopamidol 370 76% 100 ML VIAL ONE; -Iopamidol-370 76% 500 ML 1 ML ONE
[2022-10-26 19:55] LABS: #Eosinphils 0.3 thou/uL (0.0-0.7); #Lymphocytes 1.8 thou/uL (1.20-3.40); #Monocytes 0.5 thou/uL (0.11-0.59); #Neutrophils 2.2 thou/uL (1.40-6.50); %Basophils 0.8 % (0.0-1.0); %Eosinophils 5.7 % (0.0-10.0); %Lymphocytes 37.4 % (21.0-51.0); %Monocytes 9.9 % (0.0-10.0); %Neutrophils 46.2 % (42.0-75.0); Hemoglobin 11.8 g/dL (12.0-16.0); Mean Corpuscular Hemoglobin 33.7 pg (27.0-31.0); Mean Corpuscular Volume 99.2 fl (78.0-98.0); Mean Platelet Volume 7.9 fL (7.4-10.4); Platelet Count 108 10x3/uL (130-400); RBC Distribution Width 12.9 % (11.5-14.5); Red Blood Cell (RBC) Count 3.51 mill/uL (4.20-5.40); White Blood Cell (WBC) Count 4.8 10x3/uL (4.8-10.8)
[2022-10-26 20:10] LABS: Bilirubin Negative (Negative); Blood, Urine Negative (Negative); Clarity Clear (Clear); Glucose, Urine (Dipstick) Normal (Negative); Ketone, Urine Negative (Negative); Leukocyte Negative Leu/uL (Negative); Nitrite Negative (Negative); Protein, Urine (Dipstick) Negative (Neg-Trace); Specific Gravity, Urine 1.011 (1.002-1.036); Urobilinogen Normal mg/dL (Less than 2); pH, Urine 6.5 (5.0-9.0)
[2022-10-26 20:13] LABS: ALT (SGPT) 15 U/L (8-55); AST (SGOT) 25 U/L (5-34); Albumin 3.3 g/dL (3.5-5.0); Alkaline Phosphatase 118 U/L (40-110); Anion Gap 11 mmol/L (10-20); BUN (Urea Nitrogen) 11 mg/dL (9.8-20.1); Bilirubin, Total 1.1 mg/dL (0.2-1.2); Calc. Creatinine Clearance 0 mL/min (70-130); Carbon Dioxide 20 mmol/L (22-29); Chloride 112 mmol/L (98-107); Estimated GFR 94; Globulin 2.5 g/dL (2.4-3.5); Glucose 109 mg/dL (70-105); Potassium 4.6 mmol/L (3.5-5.1); Protein, Total 5.8 g/dL (6.0-8.3); Sodium 138 mmol/L (136-145)
[2022-10-26] MEDS ORDERED: Morphine 4 MG/ML VIAL ONE (21:58)
[2022-10-26] MEDS ORDERED: Dicyclomine 20 MG/2 ML VIAL ONE (21:59)
[2022-10-26] MEDS ORDERED: Ondansetron PF 4 MG/2 ML Vial ONE (21:59)
[2022-10-26] MEDS ORDERED: Ketorolac Tromethamine 30 MG/ML VIAL ONE (21:59)
== END 2022-10-26 23:48 | disposition home or self-care (01) ==
LOC: ERS 19:04
DX: R10.819 Abdominal tenderness, unspecified site (principal); K21.9 Gastro-esophageal reflux disease without esophagitis; F17.210 Nicotine dependence, cigarettes, uncomplicated
CPT/HCPCS: 36415; 74177; 80053; 81003; 85025; 93005; 96372; 96374; 96375; J1885; J2270; J2405; Q9967

== ENCOUNTER 2022-12-14 17:02 | Emergency (ER) | payer SELFPAY ==
[~2022-12-14 17:02] MED LIST changes: -Iopamidol 370 76% 100 ML VIAL ONE; +Iopamidol-370 76% 500 ML MDV (1 ML CHARGE) ONE
[2022-12-14 17:38] LABS: #Basophils 0.1 thou/uL (0.0-0.2); #Eosinphils 0.3 thou/uL (0.0-0.7); #Monocytes 0.4 thou/uL (0.11-0.59); #Neutrophils 2.2 thou/uL (1.40-6.50); %Basophils 1.1 % (0.0-1.0); %Eosinophils 5.5 % (0.0-10.0); %Neutrophils 48.4 % (42.0-75.0); Hemoglobin 11.3 g/dL (12.0-16.0); Mean Corpuscular HGB CONC 33.3 g/dL (32.0-36.0); Mean Corpuscular Hemoglobin 32.1 pg (27.0-31.0); Mean Corpuscular Volume 96.3 fl (78.0-98.0); Mean Platelet Volume 10.1 fL (7.4-10.4); RBC Distribution Width 13.4 % (11.5-14.5); Red Blood Cell (RBC) Count 3.52 mill/uL (4.20-5.40); White Blood Cell (WBC) Count 4.6 10x3/uL (4.8-10.8)
[2022-12-14] MEDS ORDERED: Ondansetron PF 4 MG/2 ML Vial ONE (17:41)
[2022-12-14 17:54] LABS: Chloride 112 mmol/L (98-107); Sodium 139 mmol/L (136-145)
[2022-12-14 18:03] LABS: Platelet Count 101 10x3/uL (130-400)
[2022-12-14 18:35] LABS: Albumin 3.4 g/dL (3.5-5.0)
[2022-12-14 18:38] LABS: Globulin 2.3 g/dL (2.4-3.5); Glucose 95 mg/dL (70-105); Protein, Total 5.7 g/dL (6.0-8.3)
[2022-12-14 18:39] LABS: Anion Gap 10 mmol/L (10-20); Bilirubin, Total 0.9 mg/dL (0.2-1.2); Carbon Dioxide 21 mmol/L (22-29)
[2022-12-14 18:40] LABS: Alkaline Phosphatase 112 U/L (40-110)
[2022-12-14 18:41] LABS: Calc. Creatinine Clearance 0 mL/min (70-130); Estimated GFR 95
[2022-12-14 18:42] LABS: BUN (Urea Nitrogen) 7 mg/dL (9.8-20.1)
[2022-12-14 18:43] LABS: AST (SGOT) 23 U/L (5-34)
[2022-12-14 18:44] LABS: ALT (SGPT) 15 U/L (8-55)
[2022-12-14 18:47] LABS: Bilirubin Negative (Negative); Blood, Urine Negative (Negative); CAUTI Indications for Culture Dysuria,urgency,freq; Clarity Clear (Clear); Glucose, Urine (Dipstick) Normal (Negative); Ketone, Urine Negative (Negative); Leukocyte Negative Leu/uL (Negative); Nitrite Negative (Negative); Protein, Urine (Dipstick) Negative (Neg-Trace); RBC/HPF 0-3 HPF (0-3); Specific Gravity, Urine 1.024 (1.002-1.036); Urobilinogen Normal mg/dL (Less than 2); WBC/HPF 0-3 HPF (0-3)
[2022-12-14 18:52] LABS: Bacteria/HPF 1+ HPF (None Seen)
[2022-12-14 18:53] LABS: Urine Culture Reflex No No
== END 2022-12-14 19:00 | disposition home or self-care (01) ==
LOC: ERS 17:02
DX: K59.00 Constipation, unspecified (principal); K21.9 Gastro-esophageal reflux disease without esophagitis; F17.210 Nicotine dependence, cigarettes, uncomplicated
CPT/HCPCS: 71045; 74177; 80053; 81001; 83605; 85025; 93005; 96374; J2405; Q9967

== ENCOUNTER 2023-08-08 09:09 | Emergency (ER) | payer BC, SELFPAY ==
[2023-08-08] MEDS ORDERED: Morphine 4 MG/ML VIAL ONE ×2 (09:52→11:24)
[2023-08-08] MEDS ORDERED: Ondansetron PF 4 MG/2 ML Vial ONE (09:52)
[2023-08-08 09:58] LABS: Bacteria/HPF None Seen HPF (None Seen); Bilirubin Negative (Negative); Blood, Urine Negative (Negative); CAUTI Indications for Culture Pelvic or flank pain; Clarity Clear (Clear); Glucose, Urine (Dipstick) Normal (Negative); Ketone, Urine Negative (Negative); Leukocyte Negative Leu/uL (Negative); Nitrite Negative (Negative); Protein, Urine (Dipstick) Negative (Neg-Trace); RBC/HPF 0-3 HPF (0-3); Specific Gravity, Urine 1.011 (1.002-1.036); Squamous Epithelial 0-3 HPF (0-3); Urobilinogen Normal mg/dL (Less than 2); WBC/HPF 0-3 HPF (0-3); pH, Urine 5.5 (5.0-9.0)
[2023-08-08 09:59] LABS: Urine Culture Reflex No No
[2023-08-08] MEDS ORDERED: Iopamidol-370 76% 500 ML MDV (1 ML CHARGE) ONE (10:29)
[2023-08-08 10:38] LABS: #Eosinphils 0.2 thou/uL (0.0-0.7); #Monocytes 0.4 thou/uL (0.11-0.59); #Neutrophils 1.5 thou/uL (1.40-6.50); %Basophils 1.1 % (0.0-1.0); %Eosinophils 4.3 % (0.0-10.0); %Lymphocytes 44.1 % (21.0-51.0); %Monocytes 9.8 % (0.0-10.0); %Neutrophils 40.4 % (42.0-75.0); Hematocrit 33.3 % (36.0-47.0); Hemoglobin 11.2 g/dL (12.0-16.0); Mean Corpuscular HGB CONC 33.6 g/dL (32.0-36.0); Mean Corpuscular Hemoglobin 30.9 pg (27.0-31.0); Mean Platelet Volume 9.8 fL (7.4-10.4); Platelet Count 103 10x3/uL (130-400); RBC Distribution Width 13.8 % (11.5-14.5); Red Blood Cell (RBC) Count 3.62 mill/uL (4.20-5.40); White Blood Cell (WBC) Count 3.8 10x3/uL (4.8-10.8)
[2023-08-08 11:01] LABS: ALT (SGPT) 11 U/L (8-55); AST (SGOT) 21 U/L (5-34); Albumin 3.1 g/dL (3.5-5.0); Alkaline Phosphatase 149 U/L (40-110); Anion Gap 10 mmol/L (10-20); BUN (Urea Nitrogen) 6 mg/dL (9.8-20.1); Bilirubin, Total 1.2 mg/dL (0.2-1.2); Calc. Creatinine Clearance 0 mL/min (70-130); Calcium 8.7 mg/dL (7.8-10.44); Carbon Dioxide 21 mmol/L (22-29); Chloride 113 mmol/L (98-107); Estimated GFR 100; Globulin 2.3 g/dL (2.4-3.5); Glucose 94 mg/dL (70-105); Lipase 28 U/L (8-78); Potassium 3.6 mmol/L (3.5-5.1); Protein, Total 5.4 g/dL (6.0-8.3); Sodium 140 mmol/L (136-145)
[2023-08-08] MEDS ORDERED: Ketorolac Tromethamine 30 MG (1 mL) VIAL ONE (11:23)
[2023-08-08] MEDS ORDERED: Metoclopramide HCl 10 MG (2 mL) VIAL ONE (11:34)
[2023-08-08 11:48] LABS: CellaVision Operator ID LAB.KW3; Platelet Adequacy Comment Platelets Decreased; RBC Morphology Within Normal Limits
== END 2023-08-08 12:29 | disposition home or self-care (01) ==
LOC: ERS 09:09
DX: K76.89 Other specified diseases of liver (principal); R59.9 Enlarged lymph nodes, unspecified; R03.0 Elevated blood-pressure reading, without diagnosis of hypertension; R11.2 Nausea with vomiting, unspecified; J44.9 Chronic obstructive pulmonary disease, unspecified; I50.9 Heart failure, unspecified; F17.210 Nicotine dependence, cigarettes, uncomplicated; Z79.899 Other long term (current) drug therapy
CPT/HCPCS: 36415; 74177; 80053; 81001; 83690; 85025; 93005; 96361; 96374; 96375; 96376; J1885; J2270; J2405; J2765; Q9967

== ENCOUNTER 2024-05-23 14:05 | Inpatient (IN) | payer BC ==
[~2024-05-23 14:05] MED LIST changes: +Iopamidol 370 76% 100 ML VIAL ONE; -Iopamidol-370 76% 500 ML MDV (1 ML CHARGE) ONE
[2024-05-24] MEDS ORDERED: Nitroglycerin 0.4 MG TAB (25 Tab Bottle) SL PRN (01:52)
[2024-05-24] MEDS ORDERED: Acetaminophen 650 MG Suppository PR PRN (02:00)
[2024-05-24 06:28] LABS: #Basophils Less than 0.03 10x3/uL (0.0-0.2); #Eosinophils Less than 0.03 10x3/uL (0.0-0.7); %Basophils 0.1 % (0.0-1.0); %Lymphocytes 7.8 % (21.0-51.0); %Monocytes 3.3 % (0.0-10.0); Hematocrit 36.7 % (36.0-47.0); Hemoglobin 12.8 g/dL (12.0-16.0); Mean Corpuscular HGB CONC 34.9 g/dL (32.0-36.0); Mean Corpuscular Hemoglobin 31.8 pg (27.0-31.0); Mean Corpuscular Volume 91.1 fL (78.0-98.0); Platelet Count 126 10x3/uL (130-400); RBC Distribution Width 14.1 % (11.5-14.5); Red Blood Cell (RBC) Count 4.03 mill/uL (4.20-5.40)
[2024-05-24 06:59] LABS: Troponin I Less than 0.010 ng/mL (< 0.028)
[2024-05-24 07:04] LABS: ALT (SGPT) 14 U/L (8-55); AST (SGOT) 27 U/L (5-34); Albumin 2.6 g/dL (3.5-5.0); Alkaline Phosphatase 127 U/L (40-110); Anion Gap 15 mmol/L (10-20); BUN (Urea Nitrogen) 13 mg/dL (9.8-20.1); Bilirubin, Total 1.1 mg/dL (0.2-1.2); Calc. Creatinine Clearance 95 mL/min (70-130); Calcium 8.4 mg/dL (7.8-10.44); Carbon Dioxide 24 mmol/L (22-29); Chloride 103 mmol/L (98-107); Estimated GFR 87; Glucose 140 mg/dL (70-105); Magnesium 1.9 mg/dL (1.6-2.6); Potassium 3.5 mmol/L (3.5-5.1); Protein, Total 6.6 g/dL (6.0-8.3); Sodium 138 mmol/L (136-145)
[2024-05-24] MEDS ORDERED: Empagliflozin 10 MG TAB ONE (08:38)
[2024-05-24] MEDS ORDERED: Furosemide 40 MG (4 mL) VIAL ONE (08:38)
[2024-05-24] MEDS ORDERED: Famotidine 20 MG TAB ONE (08:38)
[2024-05-24] MEDS ORDERED: Polyethylene Glycol 3350 17 GM Packet PO PRN (08:43)
[2024-05-24] MEDS ORDERED: Enoxaparin 80 MG (0.8 mL) SYRINGE SC SCH (09:00)
[2024-05-24] MEDS ORDERED: Famotidine/PF 20 mg/2ml Vial SLOW IVP SCH (09:00)
[2024-05-24] MEDS ORDERED: Famotidine 20 MG TAB PO SCH (09:00)
[2024-05-24] MEDS ORDERED: Doxycycline 100 MG CAP ONE (09:47)
[2024-05-24] MEDS ORDERED: Pantoprazole DR 40 MG TAB ONE (09:47)
[2024-05-24] MEDS: Pantoprazole DR 40 MG TAB ONE (10:09)
[2024-05-24] MEDS: Empagliflozin 10 MG TAB PO SCH (10:09)
[2024-05-24] MEDS: Furosemide 40 MG (4 mL) VIAL SLOW IVP SCH ×2 (10:09→15:01)
[2024-05-24] MEDS: Doxycycline 100 MG CAP ONE (10:09)
[2024-05-24] MEDS: Pantoprazole DR 40 MG TAB PO SCH (11:45)
[2024-05-24] MEDS: Doxycycline 100 MG CAP PO SCH (11:45)
[2024-05-24] MEDS: Piperacillin/Tazobactam 3.375 GM in Sodium Chloride 0.9% 100 ML IVPB SCH ×2 (11:53→15:01)
[2024-05-24] MEDS: methylPREDNISolone Sod Succ 40 MG VIAL IVP SCH (15:01)
[2024-05-24] MEDS: Ondansetron PF 4 MG/2 ML Vial SLOW IVP PRN (15:31)
[2024-05-24 15:33] LABS: ALT (SGPT) 14 U/L (8-55); AST (SGOT) 28 U/L (5-34); Albumin 2.9 g/dL (3.5-5.0); Alkaline Phosphatase 148 U/L (40-110); Anion Gap 18 mmol/L (10-20); BUN (Urea Nitrogen) 11 mg/dL (9.8-20.1); Bilirubin, Total 1.6 mg/dL (0.2-1.2); CK (CPK) 42 U/L (29-168); Calc. Creatinine Clearance 95 mL/min (70-130); Calcium 8.2 mg/dL (7.8-10.44); Carbon Dioxide 18 mmol/L (22-29); Chloride 104 mmol/L (98-107); Estimated GFR 87; Globulin 3.4 g/dL (2.4-3.5); Glucose 141 mg/dL (70-105); Lipase 8 U/L (8-78); Magnesium 1.4 mg/dL (1.6-2.6); Potassium 3.3 mmol/L (3.5-5.1); Protein, Total 6.3 g/dL (6.0-8.3); Sodium 137 mmol/L (136-145)
[2024-05-24 15:34] LABS: Troponin I 0.018 ng/mL (< 0.028)
[2024-05-24 15:57] LABS: #Basophils 0.04 10x3/uL (0.0-0.2); #Eosinophils Less than 0.03 10x3/uL (0.0-0.7); %Basophils 0.3 % (0.0-1.0); %Eosinophils 0.1 % (0.0-10.0); %Lymphocytes 7.5 % (21.0-51.0); %Monocytes 6.4 % (0.0-10.0); %Neutrophils 84.7 % (42.0-75.0); Hematocrit 38.7 % (36.0-47.0); Hemoglobin 13.3 g/dL (12.0-16.0); Mean Corpuscular HGB CONC 34.4 g/dL (32.0-36.0); Mean Corpuscular Hemoglobin 31.4 pg (27.0-31.0); Mean Corpuscular Volume 91.5 fL (78.0-98.0); Mean Platelet Volume 11.3 fL (7.4-10.4); Platelet Count 131 10x3/uL (130-400); RBC Distribution Width 14.3 % (11.5-14.5); Red Blood Cell (RBC) Count 4.23 mill/uL (4.20-5.40)
[2024-05-24] MEDS: Spironolactone 25 MG TAB PO SCH (17:00)
[2024-05-24] MEDS: Ipratropium/Albuterol 3 ML NEB NEB SCH (17:30)
[2024-05-24] MEDS: Benzonatate 100 MG CAP PO PRN (19:39)
[2024-05-24] MEDS: ALPRAZolam 0.25 MG TAB PO SCH (19:39)
[2024-05-24] MEDS: Mometasone 100 MCG/Formoterol 5 MCG 120 PUFF INHALER INH SCH (20:14)
[2024-05-24] MEDS: Loperamide HCl 2 MG CAP PO SCH (21:55)
[2024-05-24] MEDS: Acetaminophen 325 MG TAB PO PRN (23:54)
[2024-05-25] MEDS ORDERED: Acetaminophen 325 MG TAB ONE (04:14)
[2024-05-25 07:41] LABS: Anion Gap 20 mmol/L (10-20); BUN (Urea Nitrogen) 22 mg/dL (9.8-20.1); Calc. Creatinine Clearance 67 mL/min (70-130); Calcium 8.9 mg/dL (7.8-10.44); Carbon Dioxide 25 mmol/L (22-29); Chloride 96 mmol/L (98-107); Estimated GFR 61; Glucose 135 mg/dL (70-105); Potassium 2.7 mmol/L (3.5-5.1); Sodium 138 mmol/L (136-145)
[2024-05-25] MEDS: Potassium Bicarbonate/Cit Ac 20 MEQ TAB PO SCH ×2 (09:21→20:48)
[2024-05-25] MEDS: Potassium Chloride 20 MEQ TAB PO SCH ×2 (09:21→17:22)
[2024-05-25] MEDS: Potassium Chloride 20 MEQ in Premix 1 BAG IVPB SCH (09:21)
[2024-05-25] MEDS: hydrOXYzine 25 MG TAB PO SCH (09:23)
[2024-05-25 11:06] LABS: Campy jejuni + coli by PCR Negative (Negative); STEC Shiga Toxin 1+2 Negative (Negative); Salmonella spp. by PCR Negative (Negative); Shigella spp + EIEC by PCR Negative (Negative)
[2024-05-25] MEDS: Loperamide HCl 2 MG CAP PO PRN (12:20)
[2024-05-25] MEDS: Saccharomyces boulardii 250 MG CAP PO SCH (14:04)
[2024-05-25 16:40] LABS: Anion Gap 18 mmol/L (10-20); Carbon Dioxide 23 mmol/L (22-29); Chloride 99 mmol/L (98-107); Potassium 3.1 mmol/L (3.5-5.1); Sodium 137 mmol/L (136-145)
[2024-05-25 18:14] VITALS: BMI 273046.8
[2024-05-25] MEDS: Ondansetron ODT 4 MG TAB PO PRN (20:48)
[2024-05-26] MEDS: guaiFENesin ER 600 MG TAB PO SCH ×2 (00:31→08:37)
[2024-05-26] MEDS: Potassium Chloride 20 MEQ TAB PO SCH (05:18)
[2024-05-26] MEDS: Furosemide 20 MG (2 mL) VIAL SLOW IVP SCH (05:19)
[2024-05-26 06:11] LABS: Hematocrit 38.7 % (36.0-47.0); Hemoglobin 13.4 g/dL (12.0-16.0); Mean Corpuscular HGB CONC 34.6 g/dL (32.0-36.0); Mean Corpuscular Hemoglobin 31.3 pg (27.0-31.0); Mean Corpuscular Volume 90.4 fL (78.0-98.0); Mean Platelet Volume 11.3 fL (7.4-10.4); Platelet Count 150 10x3/uL (130-400); RBC Distribution Width 14.5 % (11.5-14.5); Red Blood Cell (RBC) Count 4.28 mill/uL (4.20-5.40)
[2024-05-26 06:54] LABS: Anion Gap 16 mmol/L (10-20); BUN (Urea Nitrogen) 22 mg/dL (9.8-20.1); Calc. Creatinine Clearance 73 mL/min (70-130); Calcium 8.6 mg/dL (7.8-10.44); Carbon Dioxide 23 mmol/L (22-29); Chloride 98 mmol/L (98-107); Estimated GFR 66; Glucose 193 mg/dL (70-105); Sodium 134 mmol/L (136-145)
[2024-05-26] MEDS ORDERED: VANCOMYCIN IVPB PRN (08:09)
[2024-05-26] MEDS: Saccharomyces boulardii 250 MG CAP PO SCH (08:37)
[2024-05-26 11:49] LABS: Anion Gap 17 mmol/L (10-20); BUN (Urea Nitrogen) 23 mg/dL (9.8-20.1); Calc. Creatinine Clearance 80 mL/min (70-130); Calcium 8.8 mg/dL (7.8-10.44); Carbon Dioxide 23 mmol/L (22-29); Chloride 99 mmol/L (98-107); Estimated GFR 75; Glucose 164 mg/dL (70-105); Magnesium 1.8 mg/dL (1.6-2.6); Potassium 3.7 mmol/L (3.5-5.1); Sodium 135 mmol/L (136-145)
[2024-05-26] MEDS: Vancomycin (BATCH) 1.75 GM in Premix 1 BAG IVPB SCH (13:04)
[2024-05-26] MEDS: Benzocaine/Menthol 1 LOZ LOZ PO PRN (13:15)
[2024-05-26] MEDS: ALPRAZolam 0.25 MG TAB PO PRN (13:15)
[2024-05-26] MEDS ORDERED: Furosemide 40 MG (4 mL) VIAL SLOW IVP SCH (14:00)
[2024-05-26] MEDS: Vancomycin HCl 750 MG in Sodium Chloride 0.9% 250 ML 250 ML IVPB SCH (20:34)
[2024-05-26] MEDS: Phenol 177 ML BOT PO PRN (22:26)
[2024-05-27] MEDS: Acetaminophen 650 MG/20.3 ML UDCUP PO PRN (01:12)
[2024-05-27 05:16] LABS: Vancomycin, Random 13.7 ug/mL (See Comment)
[2024-05-27] MEDS: Morphine 2 MG/ML VIAL SLOW IVP PRN (06:21)
[2024-05-27 07:56] LABS: Legionella Urinary Ag Negative (Negative)
[2024-05-27 07:57] LABS: Strep pneumo Urine Ag NEGATIVE (NEGATIVE)
[2024-05-27 12:55] LABS: Clarity Turbid (Clear); Glucose, Urine (Dipstick) Negative (Negative); Leukocyte Negative Leu/uL (Negative); Nitrite Negative (Negative); Protein, Urine (Dipstick) 50 mg/dL (Neg-Trace); Specific Gravity, Urine 1.028 (1.002-1.036)
[2024-05-27 12:56] LABS: Bilirubin 1+ (Negative); Blood, Urine 2+ (Negative); Ketone, Urine Negative (Negative); Urobilinogen 6 mg/dL (Less than 2); WBC/HPF 0-3 HPF (0-3)
[2024-05-27] MEDS: Vancomycin 1 GM in Premix 1 BAG IVPB SCH (20:38)
[2024-05-27] MEDS: methylPREDNISolone Sod Succ 40 MG VIAL IVP SCH (20:43)
[2024-05-28 05:28] LABS: Hematocrit 38.7 % (36.0-47.0); Hemoglobin 12.8 g/dL (12.0-16.0); Mean Corpuscular HGB CONC 33.1 g/dL (32.0-36.0); Mean Corpuscular Hemoglobin 31.1 pg (27.0-31.0); Mean Corpuscular Volume 94.2 fL (78.0-98.0); Mean Platelet Volume 10.8 fL (7.4-10.4); Platelet Count 130 10x3/uL (130-400); RBC Distribution Width 14.4 % (11.5-14.5); Red Blood Cell (RBC) Count 4.11 mill/uL (4.20-5.40)
[2024-05-28 05:43] LABS: Anion Gap 14 mmol/L (10-20); BUN (Urea Nitrogen) 13 mg/dL (9.8-20.1); Calc. Creatinine Clearance 100 mL/min (70-130); Calcium 8.7 mg/dL (7.8-10.44); Carbon Dioxide 22 mmol/L (22-29); Chloride 101 mmol/L (98-107); Estimated GFR 92; Glucose 155 mg/dL (70-105); Potassium 4.1 mmol/L (3.5-5.1); Sodium 133 mmol/L (136-145)
[2024-05-28] MEDS: Ipratropium/Albuterol 3 ML NEB NEB SCH (13:33)
[2024-05-29] MEDS: Ketorolac Tromethamine 30 MG (1 mL) VIAL IVP SCH (01:35)
[2024-05-29] MEDS: Morphine 2 MG/ML VIAL SLOW IVP SCH (05:32)
[2024-05-30] MEDS: traMADol HCl 50 MG TAB PO SCH (03:40)
[2024-05-30] MEDS: predniSONE 20 MG TAB PO SCH (09:19)
[2024-05-30 10:08] VITALS: BMI 29.1
[2024-05-31] MEDS ORDERED: HYDROcodone/Acetaminophen 7.5/325 mg Tablet PO PRN (08:56)
[2024-05-31 10:03] LABS: #Basophils 0.08 10x3/uL (0.0-0.2); %Basophils 0.5 % (0.0-1.0); %Eosinophils 2.8 % (0.0-10.0); %Lymphocytes 16.3 % (21.0-51.0); %Monocytes 5.5 % (0.0-10.0); %Neutrophils 71.3 % (42.0-75.0); Hematocrit 42.5 % (36.0-47.0); Mean Corpuscular HGB CONC 32.9 g/dL (32.0-36.0); Mean Corpuscular Hemoglobin 31.3 pg (27.0-31.0); Mean Corpuscular Volume 94.9 fL (78.0-98.0); Mean Platelet Volume 10.3 fL (7.4-10.4); Platelet Count 166 10x3/uL (130-400); RBC Distribution Width 14.7 % (11.5-14.5); Red Blood Cell (RBC) Count 4.48 mill/uL (4.20-5.40)
[2024-05-31] MEDS: Senokot S 8.6-50 MG TAB PO SCH (10:07)
[2024-05-31] MEDS: HYDROcodone/Acetaminophen 7.5/325 mg Tablet PO PRN (10:13)
[2024-05-31 10:41] LABS: Anion Gap 13 mmol/L (10-20); BUN (Urea Nitrogen) 14 mg/dL (9.8-20.1); Calc. Creatinine Clearance 106 mL/min (70-130); Calcium 8.7 mg/dL (7.8-10.44); Carbon Dioxide 19 mmol/L (22-29); Chloride 108 mmol/L (98-107); Estimated GFR 93; Glucose 94 mg/dL (70-105); Magnesium 1.7 mg/dL (1.6-2.6); Sodium 136 mmol/L (136-145)
[2024-05-31] MEDS: Magnesium 2 GM/50 ML(in water) 2 GM in Premix 1 BAG IVPB SCH (15:24)
[2024-05-31] MEDS: Acetaminophen/Codeine 30-300mg Tablet PO PRN (16:29)
[2024-05-31] MEDS: Heparin 5,000 UNITS/ML VIAL SC SCH (21:14)
[2024-06-02 05:41] LABS: #Basophils 0.03 10x3/uL (0.0-0.2); %Basophils 0.3 % (0.0-1.0); %Eosinophils 1.3 % (0.0-10.0); %Lymphocytes 18.6 % (21.0-51.0); %Monocytes 5.8 % (0.0-10.0); %Neutrophils 71.7 % (42.0-75.0); Hematocrit 40.1 % (36.0-47.0); Hemoglobin 13.3 g/dL (12.0-16.0); Mean Corpuscular HGB CONC 33.2 g/dL (32.0-36.0); Mean Corpuscular Hemoglobin 31.7 pg (27.0-31.0); Mean Corpuscular Volume 95.5 fL (78.0-98.0); Mean Platelet Volume 10.4 fL (7.4-10.4); Platelet Count 129 10x3/uL (130-400); RBC Distribution Width 14.6 % (11.5-14.5)
[2024-06-02 06:03] LABS: Anion Gap 13 mmol/L (10-20); BUN (Urea Nitrogen) 13 mg/dL (9.8-20.1); Calc. Creatinine Clearance 120 mL/min (70-130); Calcium 8.4 mg/dL (7.8-10.44); Carbon Dioxide 20 mmol/L (22-29); Chloride 106 mmol/L (98-107); Estimated GFR 102; Glucose 126 mg/dL (70-105); Sodium 135 mmol/L (136-145)
[2024-06-02] MEDS: Nystatin 500,000 UNITS/5 ML UDCUP SSW SCH (17:33)
[2024-06-03] MEDS: Ketorolac Tromethamine 10 MG TAB PO PRN (05:37)
[2024-06-03 05:53] LABS: #Basophils 0.04 10x3/uL (0.0-0.2); %Basophils 0.4 % (0.0-1.0); %Eosinophils 0.8 % (0.0-10.0); %Lymphocytes 19.8 % (21.0-51.0); %Monocytes 6.5 % (0.0-10.0); %Neutrophils 70.6 % (42.0-75.0); Mean Corpuscular HGB CONC 33.3 g/dL (32.0-36.0); Mean Corpuscular Hemoglobin 31.1 pg (27.0-31.0); Mean Corpuscular Volume 93.3 fL (78.0-98.0); Platelet Count 119 10x3/uL (130-400); RBC Distribution Width 14.7 % (11.5-14.5); Red Blood Cell (RBC) Count 4.18 mill/uL (4.20-5.40)
[2024-06-03] MEDS ORDERED: Ipratropium/Albuterol 3 ML NEB NEB PRN (08:06)
[2024-06-03] MEDS: predniSONE 20 MG TAB PO SCH (09:20)
[2024-06-03 16:24] VITALS: BP 112/75; TEMP 97.5
== END 2024-06-03 16:40 | disposition home or self-care (01) | DRG 193 ==
LOC: ERS 14:05 → OBS 21:46 → 2NO 05-25 13:25 → SURG B 05-29 19:47
PROVIDERS: ADMIT Student in an Organized Health Care Education/Training Program; ATTEND Family Medicine
DX: J18.9 Pneumonia, unspecified organism (principal); I50.33 Acute on chronic diastolic (congestive) heart failure; J96.01 Acute respiratory failure with hypoxia; J44.0 Chronic obstructive pulmonary disease with (acute) lower respiratory infection; E87.1 Hypo-osmolality and hyponatremia; J44.1 Chronic obstructive pulmonary disease with (acute) exacerbation; I11.0 Hypertensive heart disease with heart failure; I27.20 Pulmonary hypertension, unspecified; B37.9 Candidiasis, unspecified; E87.6 Hypokalemia; K74.60 Unspecified cirrhosis of liver; R19.7 Diarrhea, unspecified; E83.42 Hypomagnesemia; D69.6 Thrombocytopenia, unspecified; G89.29 Other chronic pain; Z91.148 Patient's other noncompliance with medication regimen for other reason; Z53.20 Procedure and treatment not carried out because of patient's decision for unspecified reasons; Z88.3 Allergy status to other anti-infective agents; Z88.8 Allergy status to other drugs, medicaments and biological substances; Z79.899 Other long term (current) drug therapy
CPT/HCPCS: 36415; 36416; 71045; 71275; 74177; 80048; 80053; 80202; 81001; 82550; 83605; 83690; 83735; 83880; 85025; 85027; 86850; 86900; 86901; 87040; 87081; 87086; 87324; 87400; 87426; 87449; 87505; 87899; 93005; 93306; 94640; 94664; 96374; 96375; 96376; 97139; J1644; J1885; J1940; J2272; J2405; J2543; J2919; J3370; J3475; J3480; J7050; J7512; J7620; Q0162; Q9967

== ENCOUNTER 2024-06-24 08:18 | Emergency (ER) | payer BC ==
[2024-06-24] MEDS ORDERED: Ondansetron PF 4 MG/2 ML Vial ONE (08:43)
[2024-06-24] MEDS ORDERED: Morphine 4 MG/ML VIAL ONE (08:43)
[2024-06-24] MEDS ORDERED: Sodium Chloride 0.9% 100 ML ONE (08:56)
[2024-06-24] MEDS ORDERED: Piperacillin/Tazobactam 3.375 GM VIAL ONE (08:56)
[2024-06-24 08:57] LABS: #Basophils 0.08 10x3/uL (0.0-0.2); %Basophils 1.1 % (0.0-1.0); %Lymphocytes 25.8 % (21.0-51.0); %Monocytes 10.3 % (0.0-10.0); %Neutrophils 59.8 % (42.0-75.0); Hematocrit 39.2 % (36.0-47.0); Hemoglobin 13.6 g/dL (12.0-16.0); Mean Corpuscular HGB CONC 34.7 g/dL (32.0-36.0); Mean Corpuscular Hemoglobin 31.7 pg (27.0-31.0); Mean Corpuscular Volume 91.4 fL (78.0-98.0); Mean Platelet Volume 9.3 fL (7.4-10.4); Platelet Count 228 10x3/uL (130-400); RBC Distribution Width 15.1 % (11.5-14.5); Red Blood Cell (RBC) Count 4.29 mill/uL (4.20-5.40)
[2024-06-24 09:12] LABS: ALT (SGPT) 13 U/L (8-55); AST (SGOT) 24 U/L (5-34); Albumin 3.1 g/dL (3.5-5.0); Alkaline Phosphatase 157 U/L (40-110); Anion Gap 14 mmol/L (10-20); BUN (Urea Nitrogen) 8 mg/dL (9.8-20.1); Bilirubin, Total 1.2 mg/dL (0.2-1.2); Calc. Creatinine Clearance 0 mL/min (70-130); Calcium 8.9 mg/dL (7.8-10.44); Carbon Dioxide 19 mmol/L (22-29); Chloride 110 mmol/L (98-107); Estimated GFR 92; Globulin 4.1 g/dL (2.4-3.5); Glucose 123 mg/dL (70-105); INR-International Normal Ratio 1.3; PTT 38.1 sec (22.9-36.1); Potassium 3.6 mmol/L (3.5-5.1); Protein, Total 7.2 g/dL (6.0-8.3); Prothrombin Time 16.1 sec (12.0-14.7); Sodium 139 mmol/L (136-145)
[2024-06-24] MEDS ORDERED: Vancomycin (BATCH) 1.5 GM in Premix 1 BAG IVPB SCH (09:15)
[2024-06-24 09:18] LABS: Troponin I Less than 0.010 ng/mL (< 0.028)
[2024-06-24 09:54] LABS: Lipase 18 U/L (8-78)
[2024-06-24] MEDS ORDERED: Dicyclomine 20 MG/2 ML VIAL ONE (10:04)
[2024-06-24] MEDS ORDERED: diphenhydrAMINE 50 MG/ML VIAL ONE (10:04)
[2024-06-24] MEDS ORDERED: HYDROmorphone 0.5 MG/0.5 ML SYRINGE ONE (10:04)
[2024-06-24 10:58] LABS: Bacteria/HPF None Seen HPF (None Seen); Bilirubin Negative (Negative); Blood, Urine Negative (Negative); CAUTI Indications for Culture Alt mental st,lethar; Clarity Clear (Clear); Glucose, Urine (Dipstick) Normal (Negative); Ketone, Urine Negative (Negative); Leukocyte 25 Leu/uL (Negative); Nitrite Negative (Negative); Protein, Urine (Dipstick) Negative (Neg-Trace); RBC/HPF 0-3 HPF (0-3); Squamous Epithelial 0-3 HPF (0-3); Urobilinogen Normal mg/dL (Less than 2); pH, Urine 6.5 (5.0-9.0)
[2024-06-24 10:59] LABS: Specific Gravity, Urine 1.059 (1.002-1.036); Urine Culture Reflex No No
[2024-06-24] MEDS ORDERED: Haloperidol Lactate 5 MG/ML VIAL ONE (11:48)
[2024-06-24 11:50] LABS: Lactic Acid 1.48 mmol/L (0.5-2.2)
== END 2024-06-24 13:27 | disposition home or self-care (01) ==
LOC: ERS 08:18
DX: K52.9 Noninfective gastroenteritis and colitis, unspecified (principal); L29.9 Pruritus, unspecified; J44.9 Chronic obstructive pulmonary disease, unspecified; I50.9 Heart failure, unspecified; Z79.899 Other long term (current) drug therapy
CPT/HCPCS: 36415; 71045; 74177; 80053; 81001; 83605; 83690; 83880; 84484; 85025; 85610; 85730; 87040; 87086; 87428; 93005; 94760; 96365; 96366; 96368; 96375; J1171; J1200; J1630; J2272; J2405; J2543; J3370

== ENCOUNTER 2024-06-29 17:46 | Emergency (ER) | payer BC ==
[~2024-06-29 17:46] MED LIST changes: -Iopamidol 370 76% 100 ML VIAL ONE; +Iopamidol-370 76% 500 ML MDV (1 ML CHARGE) ONE
[2024-06-29] MEDS ORDERED: Ondansetron PF 4 MG/2 ML Vial ONE (18:08)
[2024-06-29] MEDS ORDERED: fentaNYL 50 mcg/mL 1 mL Vial ONE (18:09)
[2024-06-29 18:13] LABS: #Basophils 0.05 10x3/uL (0.0-0.2); %Basophils 0.7 % (0.0-1.0); %Eosinophils 1.8 % (0.0-10.0); %Lymphocytes 28.4 % (21.0-51.0); %Neutrophils 61.7 % (42.0-75.0); Hematocrit 35.6 % (36.0-47.0); Hemoglobin 12.1 g/dL (12.0-16.0); Mean Corpuscular Hemoglobin 30.6 pg (27.0-31.0); Mean Corpuscular Volume 90.1 fL (78.0-98.0); Mean Platelet Volume 9.8 fL (7.4-10.4); Platelet Count 144 10x3/uL (130-400); RBC Distribution Width 15.2 % (11.5-14.5); Red Blood Cell (RBC) Count 3.95 mill/uL (4.20-5.40)
[2024-06-29 18:25] LABS: ALT (SGPT) 13 U/L (8-55); AST (SGOT) 27 U/L (5-34); Alkaline Phosphatase 149 U/L (40-110); Anion Gap 13 mmol/L (10-20); BUN (Urea Nitrogen) 6 mg/dL (9.8-20.1); Bilirubin, Total 0.9 mg/dL (0.2-1.2); Calc. Creatinine Clearance 0 mL/min (70-130); Calcium 8.4 mg/dL (7.8-10.44); Carbon Dioxide 20 mmol/L (22-29); Chloride 110 mmol/L (98-107); Estimated GFR 101; Globulin 3.8 g/dL (2.4-3.5); Glucose 105 mg/dL (70-105); Lipase 29 U/L (8-78); Magnesium 1.6 mg/dL (1.6-2.6); Potassium 3.4 mmol/L (3.5-5.1); Protein, Total 6.8 g/dL (6.0-8.3); Sodium 140 mmol/L (136-145)
[2024-06-29 18:30] LABS: Troponin I Less than 0.010 ng/mL (< 0.028)
[2024-06-29] MEDS ORDERED: Morphine 4 MG/ML VIAL ONE (18:53)
[2024-06-29 19:09] LABS: Bacteria/HPF None Seen HPF (None Seen); Bilirubin Negative (Negative); Blood, Urine Negative (Negative); CAUTI Indications for Culture Dysuria,urgency,freq; Clarity Clear (Clear); Glucose, Urine (Dipstick) Normal (Negative); Ketone, Urine Negative (Negative); Leukocyte Negative Leu/uL (Negative); Nitrite Negative (Negative); Protein, Urine (Dipstick) Negative (Neg-Trace); RBC/HPF 0-3 HPF (0-3); Specific Gravity, Urine 1.013 (1.002-1.036); Squamous Epithelial 0-3 HPF (0-3); Urobilinogen Normal mg/dL (Less than 2); WBC/HPF 0-3 HPF (0-3)
[2024-06-29 19:10] LABS: Urine Culture Reflex No No
[2024-06-29] MEDS ORDERED: Pantoprazole 40 MG VIAL ONE (19:27)
[2024-06-29] MEDS ORDERED: Ketorolac Tromethamine 30 MG (1 mL) VIAL ONE (20:17)
== END 2024-06-29 21:10 | disposition home or self-care (01) ==
LOC: ERS 17:46
DX: L03.116 Cellulitis of left lower limb (principal); K52.9 Noninfective gastroenteritis and colitis, unspecified; J44.9 Chronic obstructive pulmonary disease, unspecified; I50.9 Heart failure, unspecified
CPT/HCPCS: 74177; 80053; 81001; 83605; 83690; 83735; 84484; 85025; 87040; 87086; 93005; 96361; 96374; 96375; J1885; J2272; J2405; J2470; J3010; Q9967

== ENCOUNTER 2024-11-24 17:25 | Emergency (ER) | payer BC, OTHER, SELFPAY ==
[2024-11-24 18:19] LABS: #Basophils 0.08 10x3/uL (0.0-0.2); #Eosinophils 0.19 10x3/uL (0.0-0.7); #Neutrophils 4.16 10x3/uL (1.40-6.50); %Basophils 1.1 % (0.0-1.0); %Eosinophils 2.6 % (0.0-10.0); %Monocytes 6.9 % (0.0-10.0); %Neutrophils 57.3 % (42.0-75.0); Hematocrit 40.2 % (36.0-47.0); Hemoglobin 13.5 g/dL (12.0-16.0); Mean Corpuscular HGB CONC 33.6 g/dL (32.0-36.0); Mean Corpuscular Hemoglobin 30.8 pg (27.0-31.0); Mean Corpuscular Volume 91.8 fL (78.0-98.0); Mean Platelet Volume 10.3 fL (7.4-10.4); Platelet Count 136 10x3/uL (130-400); RBC Distribution Width 13.8 % (11.5-14.5); Red Blood Cell (RBC) Count 4.38 mill/uL (4.20-5.40); White Blood Cell (WBC) Count 7.27 10x3/uL (4.8-10.8)
[2024-11-24 18:39] LABS: ALT (SGPT) 15 U/L (Less than 34); AST (SGOT) 23 U/L (11-34); Albumin 3.7 g/dL (3.1-4.5); Alkaline Phosphatase 183 U/L (40-110); Anion Gap 10 mmol/L (10-20); BUN (Urea Nitrogen) 15 mg/dL (9.8-20.1); Bilirubin, Total 0.8 mg/dL (0.3-1.2); Calc. Creatinine Clearance 0 mL/min (70-130); Calcium 8.6 mg/dL (7.8-10.44); Carbon Dioxide 21 mmol/L (22-29); Chloride 113 mmol/L (98-107); Estimated GFR 93; Glucose 81 mg/dL (70-105); Lipase 73 U/L (8-78); Potassium 4.1 mmol/L (3.5-5.1); Protein, Total 6.7 g/dL (6.0-8.3); Sodium 140 mmol/L (136-145)
[2024-11-24 18:40] LABS: Troponin I Less than 0.010 ng/mL (< 0.028)
[2024-11-24] MEDS ORDERED: Ondansetron PF 4 MG/2 ML Vial ONE (18:52)
[2024-11-24] MEDS ORDERED: Morphine 4 MG/ML VIAL ONE ×2 (18:52→20:55)
[2024-11-24 19:03] LABS: Magnesium 1.9 mg/dL (1.6-2.6)
[2024-11-24 20:06] LABS: Bilirubin Negative (Negative); Blood, Urine Negative (Negative); Clarity Clear (Clear); Glucose, Urine (Dipstick) Normal (Negative); Ketone, Urine Negative (Negative); Leukocyte Negative Leu/uL (Negative); Nitrite Negative (Negative); Protein, Urine (Dipstick) Negative (Neg-Trace); Urobilinogen Normal mg/dL (Less than 2)
[2024-11-24 20:13] LABS: Bacteria/HPF None Seen HPF (None Seen); CAUTI Indications for Culture Pelvic or flank pain; RBC/HPF None Seen HPF (0-3); Squamous Epithelial None Seen HPF (0-3); Urine Culture Reflex No No; WBC/HPF None Seen HPF (0-3)
[2024-11-24] MEDS ORDERED: Mag-Al 1200 mg/1200 mg/30 ML UDCUP ONE (20:43)
[2024-11-24] MEDS ORDERED: Lidocaine Viscous Sol 2% 15 ml UD Cup ONE (20:43)
[2024-11-24] MEDS ORDERED: Famotidine/PF 20 mg/2ml Vial ONE (20:43)
[2024-11-24] MEDS ORDERED: Promethazine HCl 25 MG/ML VIAL ONE (20:56)
== END 2024-11-24 22:22 | disposition home or self-care (01) ==
LOC: ERS 17:25
DX: R10.84 Generalized abdominal pain (principal); R11.2 Nausea with vomiting, unspecified; R19.7 Diarrhea, unspecified; F17.210 Nicotine dependence, cigarettes, uncomplicated; J44.9 Chronic obstructive pulmonary disease, unspecified; I50.9 Heart failure, unspecified; Z79.51 Long term (current) use of inhaled steroids; Z79.899 Other long term (current) drug therapy; K74.60 Unspecified cirrhosis of liver; K76.6 Portal hypertension
CPT/HCPCS: 36415; 71045; 74177; 80053; 81001; 83605; 83690; 83735; 83880; 84484; 85025; 93005; 94760; 96365; 96375; 96376; J1308; J2270; J2405; J2550; Q9967

== ENCOUNTER 2025-03-01 04:49 | Inpatient (IN) | payer OTHER ==
[2025-03-01 05:46] LABS: #Basophils 0.05 10x3/uL (0.0-0.2); #Eosinophils 0.11 10x3/uL (0.0-0.7); #Monocytes 0.31 10x3/uL (0.11-0.59); #Neutrophils 7.16 10x3/uL (1.40-6.50); %Basophils 0.5 % (0.0-1.0); %Eosinophils 1.2 % (0.0-10.0); %Lymphocytes 16.2 % (21.0-51.0); %Monocytes 3.4 % (0.0-10.0); %Neutrophils 78.3 % (42.0-75.0); Hematocrit 39.8 % (36.0-47.0); Hemoglobin 13.7 g/dL (12.0-16.0); Mean Corpuscular Hemoglobin 31.0 pg (27.0-31.0); Mean Corpuscular Volume 90.0 fL (78.0-98.0); Platelet Count 131 10x3/uL (130-400); Red Blood Cell (RBC) Count 4.42 mill/uL (4.20-5.40); White Blood Cell (WBC) Count 9.15 10x3/uL (4.8-10.8)
[2025-03-01] MEDS ORDERED: Ondansetron PF 4 MG/2 ML Vial ONE ×2 (05:47→08:01)
[2025-03-01 06:25] LABS: HIV (1/2) Antibody/Antigen NONREACTIVE (NonReactive); HIV 1/2 INDEX 0.05 S/CO (<1.00); Hep B Surf Ag NONREACTIVE S/CO (NonReactive); Hep C IgG Ab Reflex HepC Qnt S/CO (NonReactive); Hep C Index 5.47 S/CO (0-0.79)
[2025-03-01] MEDS ORDERED: Metoclopramide HCl 10 MG (2 mL) VIAL ONE (06:27)
[2025-03-01 06:29] LABS: ALT (SGPT) 11 U/L (Less than 34); AST (SGOT) 24 U/L (11-34); Albumin 3.7 g/dL (3.1-4.5); Alkaline Phosphatase 156 U/L (40-110); Anion Gap 14 mmol/L (10-20); BUN (Urea Nitrogen) 7 mg/dL (9.8-20.1); Bilirubin, Total 1.2 mg/dL (0.3-1.2); Calc. Creatinine Clearance 0 mL/min (70-130); Calcium 9.5 mg/dL (7.8-10.44); Carbon Dioxide 20 mmol/L (22-29); Chloride 111 mmol/L (98-107); Globulin 3.2 g/dL (2.4-3.5); Glucose 174 mg/dL (70-105); Lipase 23 U/L (8-78); Magnesium 1.7 mg/dL (1.6-2.6); Potassium 3.0 mmol/L (3.5-5.1); Sodium 142 mmol/L (136-145)
[2025-03-01 08:03] LABS: CAUTI Indications for Culture Pelvic or flank pain; Glucose, Urine (Dipstick) Normal (Negative); Leukocyte 250 Leu/uL (Negative); Protein, Urine (Dipstick) Negative (Neg-Trace)
[2025-03-01 08:11] LABS: Specific Gravity, Urine Greater than 1.050 (1.002-1.036)
[2025-03-01 08:12] LABS: Bacteria/HPF 1+ HPF (None Seen)
[2025-03-01 08:13] LABS: Urine Culture Reflex Yes Yes
[2025-03-01] MEDS ORDERED: cefTRIAXone (ROCEPHIN) 2 GM VIAL ONE (09:02)
[2025-03-01] MEDS ORDERED: diphenhydrAMINE 50 MG/ML VIAL ONE (09:32)
[2025-03-01] MEDS ORDERED: Glucagon 1 MG/ML KIT IM PRN (10:01)
[2025-03-01] MEDS ORDERED: Dextrose 50% Abboject 50 ML SYRINGE SLOW IVP PRN (10:01)
[2025-03-01] MEDS ORDERED: Albuterol 2.5 MG (3 mL) NEB NEB PRN (10:03)
[2025-03-01] MEDS ORDERED: Ondansetron PF 4 MG/2 ML Vial IVP PRN (10:23)
[2025-03-01] MEDS ORDERED: hydrALAZINE 20 MG/ML VIAL SLOW IVP PRN (10:23)
[2025-03-01] MEDS ORDERED: Bisacodyl 10 MG SUPP PR PRN (10:23)
[2025-03-01] MEDS ORDERED: Electrolyte Replacement Protocol 1 EACH FS SCH (10:30)
[2025-03-01] MEDS: PROMETHAZINE IVPB SCH (11:31)
[2025-03-01] MEDS: ADMIXTURE FEE IVPB SCH (11:31)
[2025-03-01] MEDS: SODIUM CHLORIDE IVPB SCH (11:31)
[2025-03-01 11:32] VITALS: BMI 32.2
[2025-03-01] MEDS: Potassium Chloride 20 MEQ in Premix 1 BAG IVPB SCH (11:40)
[2025-03-01] MEDS: Magnesium 2 GM/50 ML(in water) 2 GM in Premix 1 BAG IVPB SCH (11:40)
[2025-03-01] MEDS ORDERED: Iopamidol 370 76% 100 ML VIAL ONE (12:25)
[2025-03-01 14:14] LABS: Anion Gap 12 mmol/L (10-20); BUN (Urea Nitrogen) 8 mg/dL (9.8-20.1); Calc. Creatinine Clearance 133 mL/min (70-130); Calcium 8.7 mg/dL (7.8-10.44); Carbon Dioxide 20 mmol/L (22-29); Chloride 114 mmol/L (98-107); Glucose 144 mg/dL (70-105); Potassium 4.0 mmol/L (3.5-5.1); Sodium 142 mmol/L (136-145)
[2025-03-01] MEDS: Pantoprazole 40 MG VIAL IVP SCH (20:01)
[2025-03-02] MEDS: Melatonin 3 MG TAB PO PRN (01:39)
[2025-03-02 05:32] LABS: ALT (SGPT) 12 U/L (Less than 34); AST (SGOT) 20 U/L (11-34); Albumin 2.8 g/dL (3.1-4.5); Alkaline Phosphatase 107 U/L (40-110); Anion Gap 9 mmol/L (10-20); BUN (Urea Nitrogen) 10 mg/dL (9.8-20.1); Bilirubin, Total 1.1 mg/dL (0.3-1.2); Calc. Creatinine Clearance 116 mL/min (70-130); Calcium 8.2 mg/dL (7.8-10.44); Carbon Dioxide 23 mmol/L (22-29); Chloride 112 mmol/L (98-107); Globulin 2.3 g/dL (2.4-3.5); Glucose 99 mg/dL (70-105); Potassium 3.5 mmol/L (3.5-5.1); Sodium 140 mmol/L (136-145)
[2025-03-02 05:42] LABS: #Basophils 0.04 10x3/uL (0.0-0.2); #Eosinophils 0.12 10x3/uL (0.0-0.7); #Monocytes 0.51 10x3/uL (0.11-0.59); #Neutrophils 4.53 10x3/uL (1.40-6.50); %Basophils 0.6 % (0.0-1.0); %Eosinophils 1.7 % (0.0-10.0); %Lymphocytes 26.8 % (21.0-51.0); %Monocytes 7.2 % (0.0-10.0); %Neutrophils 63.4 % (42.0-75.0); Hematocrit 32.0 % (36.0-47.0); Hemoglobin 10.9 g/dL (12.0-16.0); Mean Corpuscular Hemoglobin 30.9 pg (27.0-31.0); Mean Corpuscular Volume 90.7 fL (78.0-98.0); Platelet Count 75 10x3/uL (130-400); Red Blood Cell (RBC) Count 3.53 mill/uL (4.20-5.40); White Blood Cell (WBC) Count 7.13 10x3/uL (4.8-10.8)
[2025-03-02] MEDS: Enoxaparin 40 MG (0.4 mL) SYRINGE SC SCH (07:30)
[2025-03-02] MEDS: Potassium Chloride 20 MEQ in Premix 1 BAG IVPB SCH (10:31)
[2025-03-02] MEDS: Transdermal Patch Removal TOP SCH (19:52)
[2025-03-03 06:38] LABS: Hematocrit 34.0 % (36.0-47.0); Hemoglobin 11.4 g/dL (12.0-16.0); Mean Corpuscular Hemoglobin 30.6 pg (27.0-31.0); Mean Corpuscular Volume 91.4 fL (78.0-98.0); Platelet Count 67 10x3/uL (130-400); Red Blood Cell (RBC) Count 3.72 mill/uL (4.20-5.40); White Blood Cell (WBC) Count 6.41 10x3/uL (4.8-10.8)
[2025-03-03 06:46] LABS: Anion Gap 11 mmol/L (10-20); BUN (Urea Nitrogen) 8 mg/dL (9.8-20.1); Calc. Creatinine Clearance 124 mL/min (70-130); Calcium 8.3 mg/dL (7.8-10.44); Carbon Dioxide 24 mmol/L (22-29); Chloride 109 mmol/L (98-107); Glucose 91 mg/dL (70-105); Potassium 3.6 mmol/L (3.5-5.1); Sodium 140 mmol/L (136-145)
[2025-03-03] MEDS ORDERED: MD-Gastroview 120 ML BOT ONE (08:44)
[2025-03-03] MEDS ORDERED: Phenol 177 ML BOT PO PRN (09:41)
[2025-03-03] MEDS: HYDROmorphone 0.5 MG/0.5 ML SYRINGE SLOW IVP SCH ×2 (10:09→19:56)
[2025-03-03] MEDS ORDERED: Ondansetron PF 4 MG/2 ML Vial ONE (13:05)
[2025-03-03 14:44] VITALS: BMI 32.2
[2025-03-04 17:38] LABS: Hep C PCR-Quant HCV Not Detected IU/mL (.)
[2025-03-05] MEDS: Acetaminophen 500 MG TAB PO SCH (14:28)
[2025-03-05] MEDS: Ciprofloxacin 500 MG TAB PO SCH (20:48)
[2025-03-06] MEDS: Pantoprazole 40 MG DR.TAB PO SCH (08:39)
[2025-03-06 11:24] VITALS: BP 145/89; TEMP 97.9
== END 2025-03-06 16:30 | disposition home or self-care (01) | DRG 690 ==
LOC: ERS 04:49 → SURG A 09:41
PROVIDERS: ADMIT Internal Medicine; ATTEND Internal Medicine
DX: N39.0 Urinary tract infection, site not specified (principal); K56.609 Unspecified intestinal obstruction, unspecified as to partial versus complete obstruction; E87.20 Acidosis, unspecified; I50.32 Chronic diastolic (congestive) heart failure; I11.0 Hypertensive heart disease with heart failure; J44.9 Chronic obstructive pulmonary disease, unspecified; F10.10 Alcohol abuse, uncomplicated; F17.210 Nicotine dependence, cigarettes, uncomplicated; E87.6 Hypokalemia; F41.9 Anxiety disorder, unspecified; D64.9 Anemia, unspecified; Z88.8 Allergy status to other drugs, medicaments and biological substances; Z99.81 Dependence on supplemental oxygen; Z98.890 Other specified postprocedural states; Z83.3 Family history of diabetes mellitus; Z90.49 Acquired absence of other specified parts of digestive tract; Z90.710 Acquired absence of both cervix and uterus; Z93.2 Ileostomy status; Z79.899 Other long term (current) drug therapy
CPT/HCPCS: 36415; 36416; 51701; 74018; 74177; 74250; 80048; 80053; 81001; 83605; 83690; 83735; 84484; 85025; 85027; 86803; 87077; 87086; 87186; 87340; 87389; 87522; 93005; 96361; 96365; 96375; 96376; J0696; J1171; J1200; J1650; J2060; J2270; J2405; J2470; J2543; J2550; J2765; J3010; J3475; J3480; J7120; Q9963; Q9967